=== PATIENT | male | born 1945 | race Caucasian/White ===

== ENCOUNTER → 2017-08-04 10:27 | Outpatient (CLI) | payer MEDICARE, OTHER, SELFPAY ==
--- NOTE | 2017-08-04 | DI.CT.S_ITS ---
PROCEDURE: CT ABDOMEN PELVIS W CON INDICATIONS: Weight Loss TECHNIQUE: After the administration of oral and intravenous contrast, 5 mm thick sections acquired from the diaphragms to the symphysis. 5 mm thick coronal and sagittal reformats were performed. For radiation dose reduction, the following was used: automated exposure control, adjustment of mA and/or kV according to patient size. COMPARISON: [facility], RG, CT KUB, 03/14/2006, 12:24. Merged With [facility], CT, CT ANGIO ABD, 05/09/2015, 10:45. FINDINGS: Image quality: Excellent. ABDOMEN: Lung bases: There is a stable small subpleural 3 mm nodule within the right middle lobe. Mild dependent atelectasis is present bilaterally. Heart size is normal. Solid organs: There are a few scattered small hypodense foci within the liver which are too small to characterize but appears similar to the prior study and likely represent cysts. There is a small cyst also noted within the left hepatic lobe measuring up to 1.2 cm. The gallbladder appears within normal limits without calcified gallstones. Biliary system is non-dilated. Pancreas enhances normally. Spleen is normal in size and enhancement. No adrenal nodules. Kidneys demonstrate no hydronephrosis. There is an exophytic right renal cyst noted. Peritoneum and bowel: Stomach, small bowel, and colon loops are normal in caliber and wall thickness. There is colonic diverticulosis without acute diverticulitis. No free fluid or air. Nodes and vessels: No retroperitoneal or mesenteric adenopathy. There is a saccular aneurysm of the infrarenal abdominal aorta measuring up to 3.9 cm in anteroposterior dimension which is slightly increased from 3.6 cm at a comparable level previously. The hepatic artery arises separately from the aorta and appears patent. The splenic artery also appears patent. The superior mesenteric artery appears patent. The inferior mesenteric artery arises adjacent to the anterior margin of the aortic aneurysm with patent enhancement noted. There is calcification at its origin suggestive of a stenosis which is incompletely evaluated. Miscellaneous: No ventral hernias. PELVIS: Genitourinary: The urinary bladder is partially distended with mild concentric bladder wall thickening and minimal fat stranding. Miscellaneous: No inguinal hernias or adenopathy. There is mild scarring in the right inguinal region. Bones: No suspicious bony lesions. No vertebral body compression fractures. IMPRESSION: 1. Slight interval increase in size of an infrarenal abdominal aortic aneurysm measuring up to 4.0 cm in anteroposterior dimension. 2. 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 There is suggestion of stenosis at its origin. 3. Bladder wall thickening suggestive of a nonspecific cystitis. Recommend correlation with urinalysis. 4. Colonic diverticulosis. Dictated by: Constantin Okeefe M.D. on 08/04/2017 at 16:19 Approved by: Constantin Okeefe M.D. on 08/04/2017 at 16:30
== END ==
PROVIDERS: PCP Family Medicine; Visit Provider Family Medicine
DX: I71.4 Abdominal aortic aneurysm, without rupture (principal); R63.4 Abnormal weight loss; N32.89 Other specified disorders of bladder; K57.90 Diverticulosis of intestine, part unspecified, without perforation or abscess without bleeding
CPT/HCPCS: 74177; Q9967

== ENCOUNTER → 2017-10-29 06:57 | Outpatient (CLI) | payer MEDICARE, OTHER, SELFPAY ==
[2017-10-29 11:11] LABS: Prostate Specific Antigen < 0.064 ng/mL (0.10-4.00)
== END ==
PROVIDERS: PCP Family Medicine; Visit Provider Family Medicine
DX: C61 Malignant neoplasm of prostate (principal)
CPT/HCPCS: 36415; 84153

== ENCOUNTER → 2017-12-09 12:55 | Outpatient (CLI) | payer MEDICARE, OTHER, SELFPAY ==
--- NOTE | 2017-12-09 | DI.RAD.S_ITS ---
PROCEDURE: XR PELVIS 1-2V INDICATIONS: LOW BACK PAIN TECHNIQUE: 1 view(s) of the pelvis acquired. COMPARISON: [facility], CT, CT ABDOMEN PELVIS W CON, 08/04/2017, 11:18. FINDINGS: Bones: No fractures or dislocations. No suspicious bony lesions. Degenerative changes are present within the visualized lower lumbar spine. Mild to moderate bilateral degenerative hip joint space narrowing is present. Soft tissues: Visualized bowel gas pattern is normal. No suspicious soft tissue calcifications. IMPRESSION: Degenerative changes consistent with osteoarthritis within the hip joints bilaterally. Dictated by: Tiffany Alvarez M.D. on 12/09/2017 at 16:47 Approved by: Tiffany Alvarez M.D. on 12/09/2017 at 16:48
--- NOTE | 2017-12-09 | DI.RAD.S_ITS ---
PROCEDURE: XR LUMBAR SPINE 2-3V INDICATIONS: LOW BACK PAIN TECHNIQUE: 3 views of the lumbar spine were acquired. COMPARISON: [facility], , L-SPINE 2-3 VIEWS, 11/26/2014, 8:26. FINDINGS: Bones: 5 [id number] vertebrae are present. There is multilevel trace retrolisthesis. Multilevel small anterior osteophytes are present. The most prominent disc and foraminal narrowing is noted L4-5 and L5-S1 slightly progressive compared to prior exam. No vertebral body compression fractures. No suspicious bony lesions. Soft tissues: Overlying bowel gas pattern is normal. No suspicious soft tissue calcifications. IMPRESSION: Slightly progressive degenerative change most notable at L4-5 and L5-S1. Dictated by: Tiffany Alvarez M.D. on 12/09/2017 at 16:59 Approved by: Tiffany Alvarez M.D. on 12/09/2017 at 17:00
== END ==
PROVIDERS: PCP Family Medicine; Visit Provider Family Medicine
DX: M54.5 Low back pain (principal); M16.0 Bilateral primary osteoarthritis of hip
CPT/HCPCS: 72100; 72170

== ENCOUNTER → 2017-12-15 06:49 | Outpatient (CLI) | payer MEDICARE, OTHER, SELFPAY ==
[2017-12-15 07:58] LABS: Add Manual Diff / Slide Review NO; Basophils Percent Auto 0.8 % (0-2); Eosinophils Percent Auto 4.1 % (2-4); Hematocrit 44.9 % (41-53); Hemoglobin 15.4 g/dL (13.5-17.5); Lymphocytes Percent Auto 29.8 % (25-40); Mean Corpuscular HGB Conc 34.4 % (30-36); Mean Corpuscular Hemoglobin 32.3 PG (26-34); Mean Corpuscular Volume 93.9 fL (80-100); Monocytes Percent Auto 14.4 % (3-14); Neutrophils Absolute Auto 3200 /uL (3000-5900); Neutrophils Percent Auto 50.9 % (50-75); Platelet Count 223 X10^3/uL (150-400); Red Blood Cell Count 4.78 X10^6/uL (4.5-5.9); Red Cell Distribution Width 13.8 % (11.6-14.8); White Blood Cell Count 6.3 X10^3/uL (4.5-11.0)
[2017-12-15 08:18] LABS: Alanine Aminotransferase 34 IU/L (21-72); Albumin 3.9 g/dL (3.5-5.0); Albumin Globulin Ratio 1.6 (1.0-2.8); Alkaline Phosphatase 52 U/L (38-126); Aspartate Aminotransferase 29 IU/L (17-59); BUN Creatinine Ratio 18.2 (6-22); Bilirubin Total 0.5 mg/dL (0.2-1.3); Blood Urea Nitrogen 20 mg/dL (9-20); Calcium 9.3 mg/dL (8.4-10.2); Carbon Dioxide 31 mmol/L (22-32); Chloride 104 mmol/L (98-107); Cholesterol 146 mg/dL (140-199); Estimated Glomerular Filt Rate > 60.0 mL/min (>60); Globulin 2.5 g/dL (1.7-4.1); Glucose 115 mg/dL (80-110); HDL Cholesterol 45 mg/dL (40-60); HEMOLYSIS < 15 (0-50); LDL Cholesterol Calculated 80 mg/dL (<100); Potassium 4.2 mmol/L (3.4-5.1); Sodium 144 mmol/L (137-145); Total Protein 6.4 g/dL (6.3-8.2); Triglycerides 103 mg/dL (35-150)
[2017-12-15 08:19] LABS: C-Reactive Protein Quant < 0.5 mg/dL (<1.0)
[2017-12-15 08:45] LABS: Thyroid Stimulating Hormone 2.07 uIU/mL (0.47-4.68)
[2017-12-15 08:47] LABS: Carcinoembryonic Antigen 0.8 ng/mL (0.1-3.0)
[2017-12-15 09:02] LABS: Erythrocyte Sedimentation Rate 1 MM/HR (0-15)
== END ==
PROVIDERS: PCP Family Medicine; Visit Provider Family Medicine
DX: I10 Essential (primary) hypertension (principal); E78.5 Hyperlipidemia, unspecified; I71.3 Abdominal aortic aneurysm, ruptured; R63.4 Abnormal weight loss
CPT/HCPCS: 36415; 80053; 80061; 82378; 84443; 85025; 85651; 86140

== ENCOUNTER → 2017-12-22 11:08 | Outpatient (CLI) | payer MEDICARE, OTHER, SELFPAY ==
--- NOTE | 2017-12-22 | DI.RAD.S_ITS ---
PROCEDURE: XR CHEST 2V INDICATIONS: CHEST PRESSURE TECHNIQUE: 2 views of the chest were acquired. COMPARISON: [facility], , CHEST 1 VIEW, 12/02/2013, 13:47. FINDINGS: Surgical changes and devices: None. Lungs and pleura: Linear opacities are present in the left base, likely atelectasis. Mediastinum: Mediastinal contours are normal. Heart size is normal. Bones and chest wall: No suspicious bony abnormalities. Soft tissues appear unremarkable. IMPRESSION: Left basilar atelectasis. Dictated by: Tiffany Alvarez M.D. on 12/22/2017 at 12:38 Approved by: Tiffany Alvarez M.D. on 12/22/2017 at 12:39
== END ==
PROVIDERS: PCP Family Medicine; Visit Provider Family Medicine
DX: R07.89 Other chest pain (principal); J98.11 Atelectasis
CPT/HCPCS: 71046

== ENCOUNTER → 2018-01-07 12:24 | Outpatient (CLI) | payer MEDICARE, OTHER, SELFPAY ==
[2018-01-07 13:36] LABS: Blood Urea Nitrogen 17 mg/dL (9-20); Calcium 9.7 mg/dL (8.4-10.2); Carbon Dioxide 29 mmol/L (22-32); Chloride 101 mmol/L (98-107); Estimated Glomerular Filt Rate > 60.0 mL/min (>60); Glucose 110 mg/dL (80-110); HEMOLYSIS < 15 (0-50); Potassium 3.9 mmol/L (3.4-5.1); Sodium 142 mmol/L (137-145)
== END ==
PROVIDERS: PCP Family Medicine; Visit Provider Family Medicine
DX: Z01.812 Encounter for preprocedural laboratory examination (principal)
CPT/HCPCS: 36415; 80048

== ENCOUNTER → 2018-01-08 10:40 | Outpatient (CLI) | payer MEDICARE, OTHER, SELFPAY ==
--- NOTE | 2018-01-08 | DI.CT.S_ITS ---
PROCEDURE: CT CHEST W CON INDICATIONS: SORE THROAT DYSPHAGIA FATIGUE TECHNIQUE: After the administration of intravenous contrast, 5 mm thick sections acquired from the pulmonary apices to the posterior costophrenic angles. 7 mm thick coronal and sagittal MIP reformats were acquired. For radiation dose reduction, the following was used: automated exposure control, adjustment of mA and/or kV according to patient size. COMPARISON: [facility], RG, CT KUB, 03/14/2006, 12:24. [facility], CT, CT ANGIO ABD, 05/09/2015, 10:45. [facility], CT, CT ABDOMEN PELVIS W CON, 08/04/2017, 11:18. FINDINGS: Image quality: Excellent. Lungs and pleura: Atelectasis is noted in the dependent portions of the lung bases. 3 mm subpleural nodule in the lateral segment of the right middle lobe is stable compared to prior CT scan obtained 03/14/2006. No pleural effusions or pneumothorax. Central and peripheral airways are patent and normal in caliber. Mediastinum: Heart size is normal. No pericardial effusion. No mediastinal or hilar adenopathy by size criteria. Thoracic aorta and central pulmonary arteries are normal in size. Scattered atherosclerotic calcifications are noted in the aorta. Esophagus is normal in caliber. No hiatal hernia. Bones and chest wall: No suspicious bony lesions. No vertebral body compression fractures. Spine degenerative disc disease and facet arthropathy. No axillary or supraclavicular adenopathy by size criteria. Thyroid gland is normal. Abdomen: Multiple hypoattenuating lesions identified in the visualized liver are stable in size, contour and number compared to 08/04/2017 and 05/09/2015. Partially visualized exophytic cysts noted in the right kidney. Visualized upper abdominal solid organs otherwise appear normal. Upper abdominal bowel loops are normal in caliber. IMPRESSION: 1. No acute disease process. 2. No lung consolidation 3. No pleural effusions. 4. 3 mm nodule in the right middle lobe stable compared to prior examinations likely represents sequela prior granulomatous disease. 5. Atherosclerosis. Dictated by: Latonia Sharma MD, PhD on 01/08/2018 at 12:35 Approved by: Latonia Sharma MD, PhD on 01/08/2018 at 12:46
--- NOTE | 2018-01-08 | DI.CT.S_ITS ---
PROCEDURE: CT SOFT TISSUE NECK W CON INDICATIONS: SORE THROAT DYSPHAGIA FATIGUE TECHNIQUE: After the administration of intravenous contrast, 3.0 mm axial sections acquired from the sella to the aortic arch. Additional oblique axial 3.0 mm sections acquired through the pharynx. 3 mm thick coronal and sagittal reformats were generated. For radiation dose reduction, the following was used: automated exposure control. COMPARISON: None. FINDINGS: Image quality: Limited by beam hardening artifact related to metallic dental hardware. Lymph nodes: No enlarged lymph nodes seen throughout the neck. Vessels: Visualized vasculature appears patent. Atherosclerotic calcifications noted in the origins of the internal carotid arteries which causes less than 50% stenosis of the vessels. Neck spaces: There is prominence of lingual tonsils at the base of the tongue which could be infectious/inflammatory versus neoplastic. Recommend correlation with direct visualization. The nasopharynx, and pharynx demonstrate no mucosal lesions. The vocal cords, false vocal cords, pyriform sinuses, epiglottis, vallecula, and tongue base all appear normal. Extramucosal spaces appear unremarkable. Glands: The parotid and submandibular glands appear normal. Thyroid gland is normal. Miscellaneous: Visualized brain and orbits appear normal. Lung apices appear clear. Superficial soft tissues appear normal. Bones: No suspicious bony lesions. Spine degenerative disc disease and facet arthropathy. Visualized sinuses and mastoids appear unremarkable. IMPRESSION: 1. Prominence of lingual tonsils at the base of the tongue. Recommend correlation with direct visualization to differentiate inflammatory/infectious etiologies from a neoplastic process. 2. No lymphadenopathy based on size criteria. 3. No abscess. 4. Bilateral internal carotid artery atherosclerosis causes less than 50% stenosis of the origins of the vessels. 5. Severe cervical spine degenerative disc disease and facet arthropathy. Dictated by: Latonia Sharma MD, PhD on 01/08/2018 at 12:27 Approved by: Latonia Sharma MD, PhD on 01/08/2018 at 12:34
== END ==
PROVIDERS: PCP Family Medicine; Visit Provider Family Medicine
DX: J02.9 Acute pharyngitis, unspecified (principal); R13.10 Dysphagia, unspecified; R53.83 Other fatigue; I65.23 Occlusion and stenosis of bilateral carotid arteries; M50.30 Other cervical disc degeneration, unspecified cervical region; M47.812 Spondylosis without myelopathy or radiculopathy, cervical region; I25.10 Atherosclerotic heart disease of native coronary artery without angina pectoris; R91.1 Solitary pulmonary nodule
CPT/HCPCS: 70491; 71260; Q9967

== ENCOUNTER → 2018-04-08 09:19 | Outpatient (CLI) | payer MEDICARE, OTHER, SELFPAY ==
[2018-04-08 10:37] LABS: Add Manual Diff / Slide Review NO; Basophils Percent Auto 0.5 % (0-2); Eosinophils Percent Auto 4.2 % (2-4); Hematocrit 44.8 % (41-53); Hemoglobin 15.1 g/dL (13.5-17.5); Lymphocytes Percent Auto 25.9 % (25-40); Mean Corpuscular HGB Conc 33.6 % (30-36); Mean Corpuscular Hemoglobin 31.9 PG (26-34); Mean Corpuscular Volume 94.7 fL (80-100); Monocytes Percent Auto 13.3 % (3-14); Neutrophils Absolute Auto 4500 /uL (1500-7000); Neutrophils Percent Auto 56.1 % (50-75); Platelet Count 263 X10^3/uL (150-400); Red Blood Cell Count 4.73 X10^6/uL (4.5-5.9); Red Cell Distribution Width 14.4 % (11.6-14.8); White Blood Cell Count 8.1 X10^3/uL (4.5-11.0)
[2018-04-08 10:50] LABS: Alanine Aminotransferase 47 IU/L (21-72); Albumin Globulin Ratio 1.4 (1.0-2.8); Alkaline Phosphatase 62 U/L (38-126); Aspartate Aminotransferase 31 IU/L (17-59); Bilirubin Total 0.6 mg/dL (0.2-1.3); Blood Urea Nitrogen 22 mg/dL (9-20); Calcium 9.2 mg/dL (8.4-10.2); Carbon Dioxide 25 mmol/L (22-32); Chloride 105 mmol/L (98-107); Estimated Glomerular Filt Rate > 60.0 mL/min (>60); Globulin 2.8 g/dL (1.7-4.1); Glucose 89 mg/dL (80-110); HEMOLYSIS < 15 (0-50); Potassium 3.8 mmol/L (3.4-5.1); Sodium 140 mmol/L (137-145); Total Protein 6.8 g/dL (6.3-8.2)
[2018-04-08 10:57] LABS: C-Reactive Protein Quant < 0.5 mg/dL (<1.0)
[2018-04-08 10:59] LABS: Erythrocyte Sedimentation Rate 1 MM/HR (0-15)
[2018-04-08 11:19] LABS: Carcinoembryonic Antigen 0.9 ng/mL (0.1-3.0); Prostate Specific Antigen < 0.064 ng/mL (0.10-4.00)
[2018-04-08 11:37] LABS: Thyroid Stimulating Hormone 1.53 uIU/mL (0.47-4.68)
[2018-04-10 07:54] LABS: Immunoglobulin E 12 kU/L (< 115)
== END ==
PROVIDERS: PCP Family Medicine; Visit Provider Family Medicine
DX: J30.9 Allergic rhinitis, unspecified (principal); D50.9 Iron deficiency anemia, unspecified; Z85.46 Personal history of malignant neoplasm of prostate; R63.4 Abnormal weight loss; I10 Essential (primary) hypertension
CPT/HCPCS: 36415; 80053; 82378; 82728; 82785; 84153; 84443; 85025; 85651; 86140

== ENCOUNTER → 2018-04-27 09:59 | Outpatient (CLI) | payer MEDICARE, OTHER, SELFPAY ==
--- NOTE | 2018-04-27 | DI.RAD.S_ITS ---
PROCEDURE: FL BARIUM SWALLOW W SPEECH INDICATIONS: DYSPHAGIA TECHNIQUE: Examination was conducted in conjunction with speech pathology per standard protocol. In the lateral projection, filming was performed of the patient swallowing. AP projection filming may also be performed with patient swallowing. COMPARISON: None. FINDINGS: Function: The oral preparatory phase appears normal, with proper containment. The subsequent oral propulsive phase, pharyngeal phase, and esophageal phase of swallowing also appear normal with all proffered substances. No laryngotracheal penetration or aspiration. No pathologic vallecular pooling. Morphology: No cricopharyngeal bar is identified. No cervical esophageal webs. No Zenker's diverticulum. No strictures. IMPRESSION: Normal examination. Please also refer to the dedicated speech therapy swallowing evaluation report that will be independently generated. Dictated by: Italo Hernandez M.D. on 04/27/2018 at 12:08 Approved by: Italo Hernandez M.D. on 04/27/2018 at 12:09
== END ==
PROVIDERS: PCP Family Medicine; Visit Provider Otolaryngology Facial Plastic Surgery
DX: R13.10 Dysphagia, unspecified (principal)
CPT/HCPCS: 74230; 92611

== ENCOUNTER → 2018-12-15 13:07 | Outpatient (CLI) | payer MEDICARE, OTHER, SELFPAY ==
--- NOTE | 2018-12-15 | DI.US.S_ITS ---
PROCEDURE: US RETRO PERITONEAL LIMITED INDICATIONS: Abdominal aortic aneurysm, without rupture TECHNIQUE: Real time scanning was performed of the aorta and iliac arteries, with image documentation. COMPARISON: [facility], , ABD AORTA ANEURYSM SCREENING, 10/30/2016, 9:52. [facility], [place], ABDOMEN COMPLETE, 08/04/2013, 9:07. [facility], [place], NM PET CT FUSION SKULL 2 THIGH, 04/29/2018, 17:01. [facility], CT, CT CHEST W CON, 01/08/2018, 10:47. [facility], CT, CT ABDOMEN PELVIS W CON, 08/04/2017, 11:18. FINDINGS: Aorta: Proximal aortic diameter measures 3.2 cm. Mid-aorta measures 2.8 cm. Distal aortic diameter is 5.8 cm craniocaudad, and 4.5 cm AP and transverse. This represents only a small degree of interval enlargement from the prior study performed by ultrasound 10/30/16. When at that time the maximal axial dimension AP and transverse was 3.5 x 3.9 cm. Iliac arteries: Right common iliac artery measures 1.6 cm. Left common iliac artery measures 1.8 cm. IMPRESSION: Mild interval increase in the aortic aneurysm involving the distal abdominal aorta, a best represented by the change in the axial dimension from 3.5 x 3.9 cm previously to 4.5 x 4.5 cm currently. Dictated by: Italo Hernandez M.D. on 12/15/2018 at 16:32 Approved by: Italo Hernandez M.D. on 12/15/2018 at 16:36
== END ==
PROVIDERS: PCP Family Medicine; Visit Provider Hospitalist
DX: I71.4 Abdominal aortic aneurysm, without rupture (principal)
CPT/HCPCS: 76775

== ENCOUNTER → 2019-01-20 12:27 | Outpatient (CLI) | payer MEDICARE, OTHER, SELFPAY ==
--- NOTE | 2019-01-20 | DI.CT.S_ITS ---
PROCEDURE: CT ANGIO ABDOMEN PELVIS INDICATIONS: AAA TECHNIQUE: After the administration of intravenous contrast, 2.5 mm thick sections acquired from the diaphragm to the symphysis. 10 mm maximum-intensity projection (MIP) reformats were then acquired. For radiation dose reduction, the following was used: automated exposure control. COMPARISON: [facility], CT, CT ABDOMEN PELVIS W CON, 08/04/2017, 11:18. FINDINGS: Image quality: Excellent. Aorta: Significant interval growth of an infrarenal abdominal aortic aneurysm, which previously measured 4.4 x 4.3 cm and currently measures 4.7 x 4.8 cm. It now has moderate thrombus. There is a suitable neck between the lowest renal artery and the aneurysm. The aneurysm ends before the common iliac arteries. There are 2 left renal arteries and a single right renal artery. The main renal arteries are widely patent. Mesenteric arteries: Celiac trunk and SMA are patent. The SIMÓN is thrombosed at its origin.. There is variant anatomy in which the common hepatic artery arises independently from the celiac artery off of the aorta at the same level. Right pelvic arteries: Common iliac and external iliac are widely patent. There are tortuous. There is no aneurysm. Left pelvic arteries: Common iliac and external iliac arteries are widely patent. There are tortuous. There are not aneurysmal. There is a high left iliac bifurcation. Extravascular soft tissues: Lung bases are clear. Heart size is normal. Liver is normal in size and enhancement. Gallbladder is unremarkable. Biliary system is non dilated. Pancreas enhances normally. Spleen is normal in size and enhancement. No adrenal nodules. Kidneys are normal in size and enhancement, without hydronephrosis. Non opacified bowel loops are normal in wall thickness and caliber. No free fluid or air. Mild colonic diverticulosis. No retroperitoneal or mesenteric adenopathy. No ventral hernias. No suspicious bony lesions. No vertebral body compression fractures. IMPRESSION: 1. Significant interval growth of infrarenal abdominal aortic aneurysm over a relatively short period of time. Based on significant interval growth, surgical therapy is suggested. The aneurysm has a suitable anatomy for endovascular treatment. Current measurements are 4.7 x 4.8 cm. 2. SIMÓN origin is occluded. Recommend vascular surgical consultation if this has not already occurred. Dictated by: Lev Rai M.D. on 01/20/2019 at 17:32 Approved by: Lev Rai M.D. on 01/20/2019 at 17:43
[2019-01-20 13:15] LABS: Add Manual Diff / Slide Review NO; Basophils Absolute Auto 100 /uL (0-100); Basophils Percent Auto 0.6 % (0-2); Eosinophils Absolute Auto 200 /uL (0-450); Eosinophils Percent Auto 1.9 % (2-4); Hematocrit 53.1 % (41-53); Hemoglobin 17.6 g/dL (13.5-17.5); Lymphocytes Absolute Auto 1900 /uL (1100-4500); Lymphocytes Percent Auto 20.8 % (25-40); Mean Corpuscular HGB Conc 33.2 % (30-36); Mean Corpuscular Hemoglobin 32.3 PG (26-34); Mean Corpuscular Volume 97.1 fL (80-100); Monocytes Absolute Auto 1100 /uL (0-900); Monocytes Percent Auto 11.3 % (3-14); Neutrophils Absolute Auto 6100 /uL (1500-7000); Neutrophils Percent Auto 65.4 % (50-75); Platelet Count 240 X10^3/uL (150-400); Red Blood Cell Count 5.47 X10^6/uL (4.5-5.9); Red Cell Distribution Width 13.8 % (11.6-14.8); White Blood Cell Count 9.3 X10^3/uL (4.5-11.0)
[2019-01-20 13:37] LABS: Erythrocyte Sedimentation Rate 1 MM/HR (0-15)
[2019-01-20 13:41] LABS: Alanine Aminotransferase 20 IU/L (21-72); Albumin 4.5 g/dL (3.5-5.0); Albumin Globulin Ratio 1.5 (1.0-2.8); Alkaline Phosphatase 65 U/L (38-126); Aspartate Aminotransferase 30 IU/L (17-59); BUN Creatinine Ratio 17.5 (6-22); Bilirubin Total 0.9 mg/dL (0.2-1.3); Blood Urea Nitrogen 21 mg/dL (9-20); C-Reactive Protein Quant < 0.5 mg/dL (<1.0); Calcium 9.6 mg/dL (8.4-10.2); Carbon Dioxide 26 mmol/L (22-32); Chloride 102 mmol/L (98-107); Estimated Glomerular Filt Rate 59.2 mL/min (>60); Glucose 102 mg/dL (80-110); HEMOLYSIS 18 (0-50); Potassium 3.9 mmol/L (3.4-5.1); Sodium 138 mmol/L (137-145); Total Protein 7.5 g/dL (6.3-8.2)
[2019-01-20 14:09] LABS: Thyroid Stimulating Hormone 1.03 uIU/mL (0.47-4.68)
[2019-01-20 14:10] LABS: Carcinoembryonic Antigen 1.2 ng/mL (0.1-3.0)
[2019-01-20 14:11] LABS: Prostate Specific Antigen < 0.064 ng/mL (0.10-4.00)
[2019-01-20 14:14] LABS: Ferritin 83.8 ng/mL (17.9-464)
[2019-01-23 09:38] LABS: Immunoglobulin E 15 kU/L (< 115)
== END ==
PROVIDERS: PCP Family Medicine; Visit Provider Physician Assistant
DX: I71.4 Abdominal aortic aneurysm, without rupture (principal); J30.9 Allergic rhinitis, unspecified; D50.9 Iron deficiency anemia, unspecified; K57.90 Diverticulosis of intestine, part unspecified, without perforation or abscess without bleeding; K55.069 Acute infarction of intestine, part and extent unspecified; I10 Essential (primary) hypertension; Z85.46 Personal history of malignant neoplasm of prostate
CPT/HCPCS: 36415; 74174; 80053; 82378; 82728; 82785; 84153; 84443; 85025; 85651; 86140; Q9967

== ENCOUNTER → 2019-04-29 09:58 | Outpatient (CLI) | payer MEDICARE, OTHER, SELFPAY ==
--- NOTE | 2019-04-29 | DI.RAD.S_ITS ---
PROCEDURE: XR KNEE LT 3V INDICATIONS: L KNEE DISCOMFORT AND BUCKLING TECHNIQUE: 3 views of the knee were acquired. COMPARISON: None. FINDINGS: Bones: Tricompartmental degenerative changes. Marginal osteophyte formation. No fractures or dislocations. No suspicious bony lesions. Soft tissues: No joint effusion. No suspicious soft tissue calcifications. IMPRESSION: Tricompartmental degenerative changes of the left knee. No acute osseous abnormalities. Dictated by: Garrett Coker M.D. on 04/29/2019 at 18:39 Approved by: Garrett Coker M.D. on 04/29/2019 at 18:41
== END ==
PROVIDERS: PCP Family Medicine; Visit Provider Family Medicine
DX: M25.562 Pain in left knee (principal)
CPT/HCPCS: 73562

== ENCOUNTER → 2019-11-02 15:08 | Outpatient (CLI) | payer MEDICARE, OTHER, SELFPAY ==
[2019-11-02 16:44] LABS: BUN Creatinine Ratio 16.8 (6-22); Blood Urea Nitrogen 18 mg/dL (9-20); Calcium 9.5 mg/dL (8.4-10.2); Carbon Dioxide 29 mmol/L (22-32); Chloride 99 mmol/L (98-107); Estimated Glomerular Filt Rate > 60.0 mL/min (>60); Glucose 92 mg/dL (80-110); HEMOLYSIS < 15 (0-50); Potassium 3.9 mmol/L (3.4-5.1); Sodium 136 mmol/L (137-145)
== END ==
PROVIDERS: PCP Family Medicine; Referring Provider Nurse Practitioner; Visit Provider Nurse Practitioner
DX: I10 Essential (primary) hypertension (principal)
CPT/HCPCS: 36415; 80048

== ENCOUNTER → 2020-02-22 09:18 | Outpatient (CLI) | payer MEDICARE, OTHER, SELFPAY ==
[2020-03-03 09:20] LABS: COVID19 -Nasal RAPID POSITIVE (Negative)
== END ==
PROVIDERS: PCP Family Medicine; Referring Provider Family Medicine; Visit Provider Family Medicine
DX: U07.1 COVID-19 (principal)
CPT/HCPCS: 87635

== ENCOUNTER → 2020-04-07 14:08 | Outpatient (CLI) | payer MEDICARE, OTHER, SELFPAY ==
[2020-04-13 13:16] LABS: SARS CoV19 IgG Positive
== END ==
PROVIDERS: PCP Family Medicine; Referring Provider Family Medicine; Visit Provider Family Medicine
DX: Z01.84 Encounter for antibody response examination (principal); Z86.16 Personal history of COVID-19
CPT/HCPCS: 36415; 86769

== ENCOUNTER → 2020-06-29 10:44 | Outpatient (CLI) | payer MEDICARE, OTHER, SELFPAY ==
[2020-06-30 12:14] LABS: SARS CoV19 IgG Negative (Negative)
== END ==
PROVIDERS: PCP Family Medicine; Referring Provider Family Medicine; Visit Provider Family Medicine
DX: Z20.822 Contact with and (suspected) exposure to COVID-19 (principal); Z86.16 Personal history of COVID-19
CPT/HCPCS: 36415; 86769

== ENCOUNTER → 2020-09-04 14:21 | Outpatient (ROUT) | payer MEDICARE, OTHER, SELFPAY ==
[2020-09-04 14:42] LABS: COVID19 -Nasal RAPID Negative (Negative)
== END ==
PROVIDERS: PCP Family Medicine; Visit Provider Family Medicine
DX: Z20.822 Contact with and (suspected) exposure to COVID-19 (principal)
CPT/HCPCS: 87635

== ENCOUNTER → 2020-09-12 08:56 | Outpatient (CLI) | payer MEDICARE, OTHER, SELFPAY ==
--- NOTE | 2020-09-12 | DI.US.S_ITS ---
PROCEDURE: US ABDOMEN LIMITED INDICATIONS: LIVER CYSTS ON MRI TECHNIQUE: Real-time focused scanning was performed of the abdomen, with image documentation. COMPARISON: [facility], CT, CT ANGIO ABDOMEN PELVIS, 01/20/2019, 13:40. Prior cardiac MRI 08/18/19 which identified what was felt to be several hepatic cysts, scattered.. FINDINGS: There are several small echogenic foci, with also internal low attenuation within the right and left hepatic lobes, measuring 4 x 4 x 5 mm, 5 x 5 x 5 mm, 4 x 4 x 7 mm within the liver parenchyma. These are most likely a small hemangiomas. No solid mass lesion is found that would indicate likelihood underlying malignancy. No intrahepatic biliary distention is seen. Note is made of an exophytic 5 cm cyst projecting from the right kidney cortex, simple in appearance. IMPRESSION: Several scattered subcentimeter hepatic hemangiomas are present, 3 total, and no solid mass lesion is found. These are presumed hemangiomas by appearance. Focal small hypodensities are seen on CT scanning 02/20/19 the corresponding in general to the findings identified sonographically and these have not changed in position or size when differences in technique are taken into account. Dictated by: Italo Hernandez M.D. on 09/13/2020 at 13:30 Approved by: Italo Hernandez M.D. on 09/13/2020 at 13:34
== END ==
PROVIDERS: PCP Family Medicine; Referring Provider Internal Medicine; Visit Provider Internal Medicine
DX: K76.89 Other specified diseases of liver (principal); D18.09 Hemangioma of other sites
CPT/HCPCS: 76705

== ENCOUNTER → 2020-09-21 09:57 | Outpatient (CLI) | payer MEDICARE, OTHER, SELFPAY ==
--- NOTE | 2020-09-21 | DI.CT.S_ITS ---
PROCEDURE: CT ABDOMEN PELVIS WO CON INDICATIONS: Lower abdominal pain, unspecified TECHNIQUE: After the administration of oral contrast, 5 mm thick sections acquired from the diaphragms to the symphysis. 5 mm coronal and sagittal reformats were performed. For radiation dose reduction, the following was used: automated exposure control, adjustment of mA and/or kV according to patient size. COMPARISON: [facility], CT, CT ANGIO ABDOMEN PELVIS, 01/20/2019, 13:40. FINDINGS: Image quality: Excellent. ABDOMEN: Lung bases: Lung bases are clear. Heart size is normal. Solid organs: Liver is normal in size. Gallbladder is within normal limits. Pancreas is normal in size. Spleen is normal in size. No adrenal nodules. Both kidneys are normal in size, without hydronephrosis or nephrolithiasis. Nonspecific mild bilateral perinephric fat stranding is seen. Well-circumscribed and exophytic hypodense structure in upper to midpole of right kidney is seen measures 4.9 x 5.3 cm in size unchanged from 2019 study and is consistent with a renal cyst. Peritoneum and bowel: Bowel loops demonstrate normal wall thickness and caliber. No free fluid or air. Colonic diverticulosis is seen, no CT evidence of acute diverticulitis. Nodes and vessels: No retroperitoneal or mesenteric adenopathy by size criteria. There is fusiform infrarenal abdominal aortic aneurysm currently measures up to 4.9 x 5 cm in largest AP and transverse diameter compared to 4.7 x 4.8 cm in size on previous study series 2, image 37. Moderate atherosclerotic disease is seen. No periaortic fluid collection is noted. Miscellaneous: No ventral hernias. PELVIS: Genitourinary: Bladder wall thickness is normal. Miscellaneous: No inguinal hernias or adenopathy. Bones: No suspicious bony lesions. No vertebral body compression fractures. Degenerative disc disease in lower lumbar spine is again seen more prominent at L4-5 and L5-S1 levels. IMPRESSION: 1. Fusiform infrarenal abdominal aortic aneurysm now measures 4.9 x 5 cm in size compared to 4.7 x 4.8 cm in size in 2019. No evidence of rupture. Atherosclerotic calcifications throughout abdominal aorta. 2. No acute inflammatory process within abdomen or pelvis. No bowel obstruction. Colonic diverticulosis without evidence of acute diverticulitis. No free fluid or free air. 3. Degenerative disc disease in lumbar spine as above. No acute compression fracture or spondylolisthesis. Dictated by: Som Locke M.D. on 09/21/2020 at 12:37 Approved by: Som Locke M.D. on 09/21/2020 at 12:41
== END ==
PROVIDERS: PCP Family Medicine; Referring Provider Family Medicine; Visit Provider Family Medicine
DX: R10.30 Lower abdominal pain, unspecified (principal); I71.4 Abdominal aortic aneurysm, without rupture; I70.0 Atherosclerosis of aorta; K57.90 Diverticulosis of intestine, part unspecified, without perforation or abscess without bleeding; M51.36 Other intervertebral disc degeneration, lumbar region
CPT/HCPCS: 74176

== ENCOUNTER → 2020-09-22 06:46 | Outpatient (CLI) | payer MEDICARE, OTHER, SELFPAY ==
[2020-09-22 07:34] LABS: Add Manual Diff / Slide Review NO; Basophils Absolute Auto 0 /uL (0-100); Basophils Percent Auto 0.7 % (0-2); Eosinophils Absolute Auto 300 /uL (0-450); Eosinophils Percent Auto 3.8 % (2-4); Hematocrit 45.7 % (41-53); Hemoglobin 15.4 g/dL (13.5-17.5); Lymphocytes Absolute Auto 2200 /uL (1100-4500); Lymphocytes Percent Auto 31.2 % (25-40); Mean Corpuscular HGB Conc 33.6 % (30-36); Mean Corpuscular Hemoglobin 32.9 PG (26-34); Mean Corpuscular Volume 97.6 fL (80-100); Monocytes Absolute Auto 1000 /uL (0-900); Monocytes Percent Auto 13.8 % (3-14); Neutrophils Absolute Auto 3600 /uL (1500-7000); Neutrophils Percent Auto 50.5 % (50-75); Platelet Count 248 X10^3/uL (150-400); Red Blood Cell Count 4.68 X10^6/uL (4.5-5.9); Red Cell Distribution Width 13.8 % (11.6-14.8); White Blood Cell Count 7.1 X10^3/uL (4.5-11.0)
[2020-09-22 08:33] LABS: Alanine Aminotransferase 18 IU/L (<50); Albumin 4.1 g/dL (3.5-5.0); Albumin Globulin Ratio 1.6 (1.0-2.8); Alkaline Phosphatase 47 U/L (38-126); Aspartate Aminotransferase 30 IU/L (17-59); Bilirubin Total 0.7 mg/dL (0.2-1.3); Blood Urea Nitrogen 22 mg/dL (9-20); Calcium 9.6 mg/dL (8.4-10.2); Carbon Dioxide 26 mmol/L (22-32); Chloride 99 mmol/L (98-107); Cholesterol 173 mg/dL (140-199); Estimated Glomerular Filt Rate > 60.0 mL/min (>60); Globulin 2.6 g/dL (1.7-4.1); Glucose 101 mg/dL (80-110); HDL Cholesterol 61 mg/dL (40-60); HEMOLYSIS < 15 (0-50); LDL Cholesterol Calculated 88 mg/dL (<100); Magnesium 1.7 mg/dL (1.6-2.3); Potassium 4.3 mmol/L (3.4-5.1); Sodium 134 mmol/L (137-145); Total Protein 6.7 g/dL (6.3-8.2); Triglycerides 122 mg/dL (35-150)
[2020-09-22 09:03] LABS: Prostate Specific Antigen < 0.064 ng/mL (0.10-4.00); Thyroid Stimulating Hormone 1.77 uIU/mL (0.47-4.68)
== END ==
PROVIDERS: PCP Family Medicine; Referring Provider Family Medicine; Visit Provider Family Medicine
DX: E78.5 Hyperlipidemia, unspecified (principal); I10 Essential (primary) hypertension; Z85.46 Personal history of malignant neoplasm of prostate; I71.4 Abdominal aortic aneurysm, without rupture; R10.30 Lower abdominal pain, unspecified; R14.0 Abdominal distension (gaseous)
CPT/HCPCS: 36415; 80053; 80061; 83735; 84153; 84443; 85025

== ENCOUNTER → 2021-02-12 10:41 | Outpatient (ROUT) | payer MEDICARE, OTHER, SELFPAY ==
[2021-02-12 15:25] LABS: COVID19 -Nasal RAPID Negative (Negative)
== END ==
PROVIDERS: PCP Family Medicine; Visit Provider Family Medicine
DX: Z20.822 Contact with and (suspected) exposure to COVID-19 (principal)
CPT/HCPCS: 87635

== ENCOUNTER → 2021-08-22 14:50 | Outpatient (CLI) | payer MEDICARE, OTHER, SELFPAY ==
--- NOTE | 2021-08-22 | DI.RAD.S_ITS ---
PROCEDURE: XR KNEE LT 3V INDICATIONS: LEFT KNEE PAIN TECHNIQUE: Three views of the left knee and one view of the right knee. COMPARISON: [facility], CR, XR KNEE LT 3V, 04/29/2019, 10:06. FINDINGS: Bones: No fractures or dislocations. No suspicious bony lesions. Mild tricompartmental periarticular osteophyte formation bilaterally. Soft tissues: No joint effusion. No suspicious soft tissue calcifications. IMPRESSION: Osteoarthritis. No acute fracture. No osseous lesion. If symptoms and/or clinical suspicion for pathology persist, further assessment with repeat, or advanced imaging (e.g., CT, MRI, or bone scan) may be helpful for further assessment. Dictated by: Cliff Max M.D. on 08/22/2021 at 16:19 Approved by: Cliff Max M.D. on 08/22/2021 at 16:21
== END ==
PROVIDERS: PCP Family Medicine; Referring Provider Family Medicine; Visit Provider Family Medicine
DX: M25.562 Pain in left knee (principal); M17.12 Unilateral primary osteoarthritis, left knee
CPT/HCPCS: 73562

== ENCOUNTER → 2021-08-31 12:54 | Outpatient (CLI) | payer MEDICARE, OTHER, SELFPAY ==
--- NOTE | 2021-08-31 | DI.MRI.S_ITS ---
PROCEDURE: MR LUMBAR SPINE WO CON INDICATIONS: LOWER BACK PAIN TECHNIQUE: Noncontrast sagittal T1 spin echo and T2 fast echo, sagittal STIR, axial T1 and T2 fast spin echo through the lumbar spine. Axial and oblique coronal T1 spin echo and STIR through the sacrum. In cases with scoliosis, additional coronal T2 fast spin echo may be performed. COMPARISON: None. FINDINGS: Image quality: Excellent. Alignment and Curvature: There is normal bony alignment. Bone Marrow: Modic type 1 degenerative endplate changes noted at L3-4. Chronic degenerative endplate changes noted L4-5 min. No evidence of compression fracture. Spinal Cord: Conus medullaris terminates at the L1 level. Visualized cord demonstrates normal signal and size. Paraspinous Soft Tissues: No paravertebral masses. Right renal cortical cyst, partially imaged T12-L1: Normal appearance. L1-L2: Disc height is maintained. Circumferential disc bulge and hypertrophic facet joints results in mild central stenosis. No foraminal stenosis L2-L3: Disc height is maintained. Circumferential disc bulge and hypertrophic facet joints results in moderate central stenosis. Moderate bilateral foraminal stenosis L3-L4: Disc height is maintained. Circumferential disc bulge and hypertrophic facet joints combines with 7 mm right synovial cyst results in severe central stenosis. Severe right and moderate left foraminal stenosis. L4-L5: Disc space narrowing with circumferential disc bulge and hypertrophic facet joints results in mild central stenosis. Severe bilateral foraminal stenosis present. L5-S1: Disc space narrowing and circumferential disc bulge present. Mild central stenosis noted. Hypertrophic facet joints result in severe bilateral foraminal stenosis. IMPRESSION: 1. Degenerative disc disease and arthropathy results in varying degrees of central and foraminal stenosis including severe central stenosis at L3-4 and severe bilateral foraminal stenosis at L4-5 and L5-S1. Approved by: Ez Merchant M.D. on 08/31/2021 at 16:30
== END ==
PROVIDERS: PCP Family Medicine; Referring Provider Family Medicine; Visit Provider Family Medicine
DX: M47.26 Other spondylosis with radiculopathy, lumbar region (principal); M47.27 Other spondylosis with radiculopathy, lumbosacral region; M51.16 Intervertebral disc disorders with radiculopathy, lumbar region; M51.17 Intervertebral disc disorders with radiculopathy, lumbosacral region; M48.061 Spinal stenosis, lumbar region without neurogenic claudication; M48.07 Spinal stenosis, lumbosacral region
CPT/HCPCS: 72148

== ENCOUNTER 2021-10-01 06:45 | Emergency (ER) | payer MEDICARE, OTHER, SELFPAY ==
[2021-10-01] VITALS (38 sets, daily range): BP systolic 120–179; BP diastolic 67–127; PULSE 75–106; RESP 17–33; TEMP 36.4; O2SAT 95–98; BMI 33.1
--- NOTE | 2021-10-01 07:10 | DI.RAD.S_ITS ---
PROCEDURE: XR CHEST 1V INDICATIONS: chest pain TECHNIQUE: One view of the chest was acquired. COMPARISON: [facility], CR, XR CHEST 2V, 12/22/2017, 10:56. FINDINGS: Surgical changes and devices: None. Lungs and pleura: Lungs are clear. No pleural effusions or pneumothorax. Mediastinum: Mildly tortuous thoracic aorta is seen. Heart size is normal. Bones and chest wall: No suspicious bony lesions. Overlying soft tissues appear unremarkable. IMPRESSION: No acute cardiopulmonary pathology. Dictated by: Som Locke M.D. on 10/01/2021 at 7:53 Approved by: Som Locke M.D. on 10/01/2021 at 7:54
--- NOTE | 2021-10-01 07:12 | ED.ARRPALP ---
HPI - Arrhythmia/Palpitations General Chief Complaint: Arrhythmia/Palpitations Stated Complaint: High BP, AFIB warning from watch Time Seen by Provider: 10/01/21 06:49 Source: patient Mode of arrival: Ambulatory History of Present Illness HPI narrative: Patient is a 76-year-old male history of hypertension, hyperlipidemia, anxiety presenting today with elevated blood pressure. He said he takes blood pressure every morning recorded this morning he took it and noted that his diastolic was 110. He then realized that his watch told him he was in atrial fibrillation. He denies any chest pain or palpitations. He had no shortness of breath no headache. He states he does not have a history AFib. He is more concerned about blood pressure. If his blood pressure was not elevated he was going to go exercise. He states that he does see a striper spray gun Dr. Colin Parra in regards to PVCs. Related Data Previous Rx's Medication Instructions Recorded alprazolam 0.5 mg tablet (Xanax) 0.5 mg PO TIDP ##30 09/25/16 omeprazole 20 mg capsule,delayed 20 mg PO BID #180 caps 04/23/17 release Allergies Allergy/AdvReac Type Severity Reaction Status Date / Time No Known Allergies Allergy Uncoded 07/09/17 13:05 Review of Systems Review of Systems Narrative: GENERAL: Denies chills, fatigue, malaise, fever, sweats, travel HEENT: Denies sinus pain, ear pain, sore throat, difficulty swallowing, neck pain RESPIRATORY: Denies dyspnea, cough, wheezing, hemoptysis, sputum. CARDIOVASCULAR: Denies chest pain, palpitations, orthopnea, edema GASTROINTESTINAL: Denies nausea, vomiting, abdominal pain, diarrhea, constipation, melena. : Denies dysuria, frequency, incontinence, hematuria, urinary retention, flank pain. MUSCULOSKELETAL: Denies weakness, joint pain, or bony pain SKIN: No rash, no erythema, no pruritus NEUROLOGIC: Denies weakness, dizziness, headache, numbness, change in speech, confusion PSYCHIATRIC: No concerning psychosocial issues. 12 point review of systems is negative except for those stated above and HPI Patient History Surgical History Status post endoscopy Exam Initial Vital Signs Initial Vital Signs: Vital Signs Pulse Rate 80 10/01/21 06:55 Respiratory Rate 18 10/01/21 06:55 Blood Pressure 142/90 H 10/01/21 06:55 Pulse Oximetry 97 10/01/21 06:55 Oxygen Delivery Method 10/01/21 06:55 GENERAL: Alert very well-appearing 76-year-old male no acute distress HEENT: Head atraumatic,EOMI, pupils reactive, face symmetric, [moist] mucous membranes CARDIOVASCULAR: Irregularly irregular RESPIRATORY: Breath sounds equal bilaterally, no wheezes rales or rhonchi. ABDOMEN: Soft, nontender. Normoactive bowel sounds all 4 quadrants. No guarding or rebound. EXTREMITIES: Normal range of motion, no clubbing or edema. Neurovascularly intact NEUROLOGICAL: Alert and oriented x4.Normal gait and speech. SKIN: Warm, dry, no laceration, no petechiae, no rashes or lesions. Course Orders Ordered: Discontinued Medications Metoprolol Tartrate (Metoprolol Tartrate 5 Mg/5 Ml Inj) 5 mg IV NOW ONE Stop: 10/01/21 07:10 Last Admin: 10/01/21 07:26 Dose: 5 mg Documented By: NEY Propofol (Propofol 200 Mg/20 Ml Vial) 100 mg 1 mg/kg (100 mg) IV NOW ONE Stop: 10/01/21 07:10 Last Admin: 10/01/21 09:50 Dose: Not Given Documented By: NEY Vital Signs Vital signs: Vital Signs - 8 hr 10/01/21 06:55 10/01/21 07:15 10/01/21 07:20 Pulse Rate 80 106 H Respiratory Rate 18 20 Blood Pressure 142/90 H 120/87 Pulse Oximetry 97 97 Oxygen Delivery Method Room Air 10/01/21 07:20 10/01/21 07:25 10/01/21 07:25 Pulse Rate 82 87 Respiratory Rate 20 20 Blood Pressure 162/95 H Pulse Oximetry 98 97 Oxygen Delivery Method 10/01/21 07:30 10/01/21 07:30 10/01/21 07:35 Pulse Rate 83 84 Respiratory Rate 20 Blood Pressure 165/121 H Pulse Oximetry 96 97 Oxygen Delivery Method 10/01/21 07:35 10/01/21 07:40 10/01/21 07:40 Pulse Rate 91 H Respiratory Rate 20 Blood Pressure 165/127 H 159/110 H Pulse Oximetry 97 Oxygen Delivery Method 10/01/21 07:45 10/01/21 07:45 10/01/21 07:50 Pulse Rate 90 Respiratory Rate 20 Blood Pressure 165/91 H 163/97 H Pulse Oximetry 97 Oxygen Delivery Method 10/01/21 07:50 10/01/21 07:55 10/01/21 07:55 Pulse Rate 83 80 Respiratory Rate 20 17 Blood Pressure 152/100 H Pulse Oximetry 97 96 Oxygen Delivery Method 10/01/21 08:00 10/01/21 08:03 10/01/21 08:03 Pulse Rate 83 Respiratory Rate 17 Blood Pressure 135/89 Pulse Oximetry 95 96 Oxygen Delivery Method 10/01/21 08:05 10/01/21 08:09 10/01/21 08:09 Pulse Rate 84 Respiratory Rate 17 17 Blood Pressure 157/96 H Pulse Oximetry 96 Oxygen Delivery Method 10/01/21 08:10 10/01/21 08:11 10/01/21 08:11 Pulse Rate 76 76 Respiratory Rate 17 Blood Pressure 153/78 H Pulse Oximetry 96 96 Oxygen Delivery Method 10/01/21 08:15 10/01/21 08:15 10/01/21 08:20 Pulse Rate 75 Respiratory Rate 17 Blood Pressure 162/82 H 147/75 H Pulse Oximetry 96 Oxygen Delivery Method 10/01/21 08:20 10/01/21 08:25 10/01/21 08:25 Pulse Rate 79 80 Respiratory Rate 17 Blood Pressure 150/91 H Pulse Oximetry 95 96 Oxygen Delivery Method 10/01/21 08:30 10/01/21 08:31 10/01/21 08:31 Pulse Rate 78 83 Respiratory Rate 17 Blood Pressure 134/98 H Pulse Oximetry 96 97 Oxygen Delivery Method 10/01/21 08:35 10/01/21 08:35 10/01/21 08:40 Pulse Rate 78 Respiratory Rate 17 17 Blood Pressure 135/97 H 142/91 H Pulse Oximetry 96 Oxygen Delivery Method 10/01/21 08:40 10/01/21 08:45 10/01/21 08:45 Pulse Rate 97 H 85 Respiratory Rate 17 Blood Pressure 179/96 H Pulse Oximetry 96 96 Oxygen Delivery Method 10/01/21 08:50 10/01/21 08:50 10/01/21 08:55 Pulse Rate 75 Respiratory Rate 18 Blood Pressure 172/87 H 161/71 H Pulse Oximetry 96 Oxygen Delivery Method 10/01/21 08:55 10/01/21 09:00 10/01/21 09:05 Pulse Rate 85 83 84 Respiratory Rate 18 18 Blood Pressure 145/85 H Pulse Oximetry 97 95 97 Oxygen Delivery Method MDM - Arrhythmia/Palpitations Lab Data Result diagrams: 10/01/21 07:23 10/01/21 07:23 Labs: Lab Results 10/01/21 10/01/21 10/01/21 Range/Units 07:23 07:23 07:23 WBC 7.5 (4.5-11.0) X10^3/uL RBC 5.03 (4.5-5.9) X10^6/uL Hgb 16.4 (13.5-17.5) g/dL Hct 48.6 (41-53) % MCV 96.6 (80-100) fL MCH 32.5 (26-34) PG MCHC 33.7 (30-36) % RDW 14.4 (11.6-14.8) % Plt Count 227 (150-400) X10^3/uL Neut % (Auto) 57.8 (50-75) % Lymph % (Auto) 24.9 L (25-40) % [place] % (Auto) 13.0 (3-14) % Eos % (Auto) 3.7 (2-4) % Baso % (Auto) 0.6 (0-2) % Neut # (Auto) 4400 (8776-2056) /uL Lymph # (Auto) 1900 (2901-1419) /uL [place] # (Auto) 1000 H (0-900) /uL Eos # (Auto) 300 (0-450) /uL Baso # (Auto) 0 (0-100) /uL PT 11.8 (10.1-12.7) SECONDS INR 1.1 (0.9-1.3) APTT 39 H (26.4-36.2) SECONDS D-Dimer (<230) ng/mL Sodium 139 (137-145) mmol/L Potassium 3.9 (3.4-5.1) mmol/L Chloride 106 (98-107) mmol/L Carbon Dioxide 26 (22-32) mmol/L BUN 17 (9-20) mg/dL Creatinine 1.11 (0.66-1.25) mg/dL Estimated GFR > 60 (>60) mL/min BUN/Creatinine Ratio 15.3 (6-22) Glucose 120 H (80-110) mg/dL Calcium 8.7 (8.4-10.2) mg/dL Total Bilirubin 0.9 (0.2-1.3) mg/dL AST 27 (17-59) IU/L ALT 19 (<50) IU/L Alkaline Phosphatase 51 (38-126) U/L Total Creatine Kinase 95 (55-170) U/L CK-MB (CK-2) TNP CK-MB (CK-2) Rel Index TNP Troponin I 0.012 (0.01-0.034) ng/mL NT-Pro-B Natriuret Pep (<450) pg/mL Total Protein 6.8 (6.3-8.2) g/dL Albumin 4.0 (3.5-5.0) g/dL Globulin 2.8 (1.7-4.1) g/dL Albumin/Globulin Ratio 1.4 (1.0-2.8) Lipase 65 (23-300) U/L TSH (0.47-4.68) uIU/mL SARS-CoV-2 (PCR) (Negative) 10/01/21 10/01/21 10/01/21 Range/Units 07:23 07:23 07:23 WBC (4.5-11.0) X10^3/uL RBC (4.5-5.9) X10^6/uL Hgb (13.5-17.5) g/dL Hct (41-53) % MCV (80-100) fL MCH (26-34) PG MCHC (30-36) % RDW (11.6-14.8) % Plt Count (150-400) X10^3/uL Neut % (Auto) (50-75) % Lymph % (Auto) (25-40) % [place] % (Auto) (3-14) % Eos % (Auto) (2-4) % Baso % (Auto) (0-2) % Neut # (Auto) (7041-6284) /uL Lymph # (Auto) (0874-2907) /uL [place] # (Auto) (0-900) /uL Eos # (Auto) (0-450) /uL Baso # (Auto) (0-100) /uL PT (10.1-12.7) SECONDS INR (0.9-1.3) APTT (26.4-36.2) SECONDS D-Dimer 218 (<230) ng/mL Sodium (137-145) mmol/L Potassium (3.4-5.1) mmol/L Chloride (98-107) mmol/L Carbon Dioxide (22-32) mmol/L BUN (9-20) mg/dL Creatinine (0.66-1.25) mg/dL Estimated GFR (>60) mL/min BUN/Creatinine Ratio (6-22) Glucose (80-110) mg/dL Calcium (8.4-10.2) mg/dL Total Bilirubin (0.2-1.3) mg/dL AST (17-59) IU/L ALT (<50) IU/L Alkaline Phosphatase (38-126) U/L Total Creatine Kinase (55-170) U/L CK-MB (CK-2) CK-MB (CK-2) Rel Index Troponin I (0.01-0.034) ng/mL NT-Pro-B Natriuret Pep 1210 H (<450) pg/mL Total Protein (6.3-8.2) g/dL Albumin (3.5-5.0) g/dL Globulin (1.7-4.1) g/dL Albumin/Globulin Ratio (1.0-2.8) Lipase (23-300) U/L TSH 1.44 (0.47-4.68) uIU/mL SARS-CoV-2 (PCR) (Negative) 10/01/21 Range/Units 07:26 WBC (4.5-11.0) X10^3/uL RBC (4.5-5.9) X10^6/uL Hgb (13.5-17.5) g/dL Hct (41-53) % MCV (80-100) fL MCH (26-34) PG MCHC (30-36) % RDW (11.6-14.8) % Plt Count (150-400) X10^3/uL Neut % (Auto) (50-75) % Lymph % (Auto) (25-40) % [place] % (Auto) (3-14) % Eos % (Auto) (2-4) % Baso % (Auto) (0-2) % Neut # (Auto) (7383-4741) /uL Lymph # (Auto) (2419-3056) /uL [place] # (Auto) (0-900) /uL Eos # (Auto) (0-450) /uL Baso # (Auto) (0-100) /uL PT (10.1-12.7) SECONDS INR (0.9-1.3) APTT (26.4-36.2) SECONDS D-Dimer (<230) ng/mL Sodium (137-145) mmol/L Potassium (3.4-5.1) mmol/L Chloride (98-107) mmol/L Carbon Dioxide (22-32) mmol/L BUN (9-20) mg/dL Creatinine (0.66-1.25) mg/dL Estimated GFR (>60) mL/min BUN/Creatinine Ratio (6-22) Glucose (80-110) mg/dL Calcium (8.4-10.2) mg/dL Total Bilirubin (0.2-1.3) mg/dL AST (17-59) IU/L ALT (<50) IU/L Alkaline Phosphatase (38-126) U/L Total Creatine Kinase (55-170) U/L CK-MB (CK-2) CK-MB (CK-2) Rel Index Troponin I (0.01-0.034) ng/mL NT-Pro-B Natriuret Pep (<450) pg/mL Total Protein (6.3-8.2) g/dL Albumin (3.5-5.0) g/dL Globulin (1.7-4.1) g/dL Albumin/Globulin Ratio (1.0-2.8) Lipase (23-300) U/L TSH (0.47-4.68) uIU/mL SARS-CoV-2 (PCR) Negative (Negative) Imaging Data Chest x-ray: Radiologist's Impresson: XRay Report Signed Patient: Hamlet Meade MR#: [id number] : 1945 Acct:[id number] Age/Sex: 76 / M Date of Service: 10/01/21 Loc: ED Accession Number: [id number] ?? Procedure: XR chest 1V Ordering Provider: Apple Mesa D.O. PROCEDURE:? XR CHEST 1V ? INDICATIONS:? chest pain ? TECHNIQUE:? One view of the chest was acquired.? ? COMPARISON:? [facility], CR, XR CHEST 2V, 12/22/2017, 10:56. ? FINDINGS:? ? Surgical changes and devices:? None.? ? Lungs and pleura:? Lungs are clear.? No pleural effusions or pneumothorax.? ? Mediastinum:? Mildly tortuous thoracic aorta is seen.? Heart size is normal.? ? Bones and chest wall:? No suspicious bony lesions.? Overlying soft tissues appear unremarkable.? ? IMPRESSION:? No acute cardiopulmonary pathology. ? ? Dictated by: Som Locke M.D. on 10/01/2021 at 7:53? ECG Data Interpretation: Atrial fibrillation rate 98 new from previous EKG from 2014 MDM Narrative Medical decision making narrative: Patient is completely asymptomatic in atrial fibrillation rate controlled. [employer] watch does state he went into AFib at 6:20 a.m. in the morning however difficult to confirm that he was actually in sinus rhythm yesterday. Heart rate is quite variable on phone may be due to PVCs versus exercise versus other. 0900 Dr. Noonan, Cardiology has been updated patient's symptoms and test results states if cannot confirm sinus rhythm yesterday do not cardiovert and anticoagulation Patient admits to drinking alcohol every day. He said last night he only had 3 glasses of wine. He usually drinks a whole bottle. Discussion of risk of bleeding on Eliquis he has been elevated has blood work. At this time patient agrees that he will discontinue aspirin until he talks to his striper spray gun. HAS-BLED Score for Major Bleeding Risk from [email or web address] on 10/01/2021 All calculations should be rechecked by clinician prior to use RESULT SUMMARY: 3 points Risk was 5.8% in one validation study (Jaycee 2011) and 3.72 bleeds per 100 patient-years in another validation study (Pisters 2010). Alternatives to anticoagulation should be considered: Patient is at high risk for major bleeding. INPUTS: Hypertension ?> 1 = Yes Renal disease ?> 0 = No Liver disease ?> 0 = No Stroke history ?> 0 = No Prior major bleeding or predisposition to bleeding ?> 0 = No Labile INR ?> 0 = No Age >65 ?> 1 = Yes Medication usage predisposing to bleeding ?> 0 = No Alcohol use ?> 1 = Yes Discharge Plan Departure Patient Disposition: Home Clinical Impression: Atrial fibrillation, new onset Instructions: DI for Atrial Fibrillation Activity Restrictions/Additional Instructions: *You have been diagnosed with new onset atrial fibrillation *What to do: At this time please continue to monitor your heart rate. If it is above 120 refill chest pain or palpitations or shortness of breath or any symptoms and return to the emergency department. We discussed anticoagulation with medications such as Eliquis however you are moderate to high risk for a bleeding event. At this time continue aspirin please discuss this again with her striper spray gun *Continue to take medications as directed Aspirin 81 mg once a day *Follow up with your primary care provider in 2-3 days or call [phone] *Return to ER if you should have chest pain palpitation shortness of breath dizziness lightheadedness [or] any new, worsening or concerning symptoms Prescriptions: No Action alprazolam [Xanax] 0.5 MG tablet 0.5 mg PO TIDP Qty: 30 0RF omeprazole 20 MG capsule,delayed release(DR/EC) 20 mg PO BID Qty: 180 0RF Referrals: Marie Smith MD [Primary Care Provider] - Laxmi Parra MD [Non-Staff] - Visit Report Forms: Patient Portal/API
[2021-10-01] MEDS: METOPROLOL TARTRATE 5 MG/5 ML INJ IV (07:26)
[2021-10-01 07:34] LABS: Add Manual Diff / Slide Review NO; Basophils Absolute Auto 0 /uL (0-100); Basophils Percent Auto 0.6 % (0-2); Eosinophils Absolute Auto 300 /uL (0-450); Eosinophils Percent Auto 3.7 % (2-4); Hematocrit 48.6 % (41-53); Hemoglobin 16.4 g/dL (13.5-17.5); Lymphocytes Absolute Auto 1900 /uL (1100-4500); Lymphocytes Percent Auto 24.9 % (25-40); Mean Corpuscular HGB Conc 33.7 % (30-36); Mean Corpuscular Hemoglobin 32.5 PG (26-34); Mean Corpuscular Volume 96.6 fL (80-100); Monocytes Absolute Auto 1000 /uL (0-900); Neutrophils Absolute Auto 4400 /uL (1500-7000); Neutrophils Percent Auto 57.8 % (50-75); Platelet Count 227 X10^3/uL (150-400); Red Blood Cell Count 5.03 X10^6/uL (4.5-5.9); Red Cell Distribution Width 14.4 % (11.6-14.8); White Blood Cell Count 7.5 X10^3/uL (4.5-11.0)
[2021-10-01 07:44] LABS: D Dimer 218 ng/mL (<230)
[2021-10-01 07:46] LABS: Alanine Aminotransferase 19 IU/L (<50); Albumin Globulin Ratio 1.4 (1.0-2.8); Alkaline Phosphatase 51 U/L (38-126); Aspartate Aminotransferase 27 IU/L (17-59); BUN Creatinine Ratio 15.3 (6-22); Bilirubin Total 0.9 mg/dL (0.2-1.3); Blood Urea Nitrogen 17 mg/dL (9-20); Calcium 8.7 mg/dL (8.4-10.2); Carbon Dioxide 26 mmol/L (22-32); Chloride 106 mmol/L (98-107); Creatine Kinase 95 U/L (55-170); Estimated Glomerular Filt Rate > 60 mL/min (>60); Globulin 2.8 g/dL (1.7-4.1); Glucose 120 mg/dL (80-110); HEMOLYSIS 27 (0-50); Lipase 65 U/L (23-300); Potassium 3.9 mmol/L (3.4-5.1); Sodium 139 mmol/L (137-145); Total Protein 6.8 g/dL (6.3-8.2)
[2021-10-01 07:49] LABS: INR 1.1 (0.9-1.3); Prothrombin Time 11.8 SECONDS (10.1-12.7)
[2021-10-01 07:50] LABS: COVID19 -Nasal RAPID Negative (Negative)
[2021-10-01 07:51] LABS: PTT Partial Thromboplastin Tim 39 SECONDS (26.4-36.2)
[2021-10-01 07:55] LABS: NT-proBNP (BNP-Adult 18+) 1210 pg/mL (<450)
[2021-10-01 07:57] LABS: Troponin I 0.012 ng/mL (0.01-0.034)
[2021-10-01 08:21] LABS: Thyroid Stimulating Hormone 1.44 uIU/mL (0.47-4.68)
== END 2021-10-01 09:46 | disposition home or self-care (01) ==
PROVIDERS: Emergency Provider Emergency Medicine; PCP Family Medicine
DX: I48.91 Unspecified atrial fibrillation (principal); R07.9 Chest pain, unspecified; Z20.822 Contact with and (suspected) exposure to COVID-19; Z79.01 Long term (current) use of anticoagulants
CPT/HCPCS: 36415; 71045; 80053; 82550; 83690; 83880; 84443; 84484; 85025; 85379; 85610; 85730; 87635; 93005; 93010; 96374; 99284; C9803

== ENCOUNTER → 2021-12-17 06:36 | Outpatient (CLI) | payer MEDICARE, OTHER, SELFPAY ==
[2021-12-17 07:53] LABS: BUN Creatinine Ratio 13.7 (6-22); Blood Urea Nitrogen 16 mg/dL (9-20); Calcium 8.8 mg/dL (8.4-10.2); Carbon Dioxide 28 mmol/L (22-32); Chloride 100 mmol/L (98-107); Estimated Glomerular Filt Rate > 60 mL/min (>60); Glucose 111 mg/dL (80-110); HEMOLYSIS < 15 (0-50); Potassium 3.8 mmol/L (3.4-5.1); Sodium 138 mmol/L (137-145)
== END ==
PROVIDERS: PCP Family Medicine; Referring Provider Internal Medicine; Visit Provider Internal Medicine
DX: I48.0 Paroxysmal atrial fibrillation (principal)
CPT/HCPCS: 36415; 80048

== ENCOUNTER → 2022-01-08 15:27 | Outpatient (CLI) | payer MEDICARE, OTHER, SELFPAY ==
[2022-01-08 16:05] LABS: Appearance Urine UA CLEAR; Bilirubin Urine UA NEGATIVE (NEGATIVE); Color Urine UA YELLOW; Glucose Urine UA NEGATIVE (Negative); Ketones Urine UA NEGATIVE (NEGATIVE); Leukocyte Esterase Urine UA NEGATIVE (NEGATIVE); Nitrite Urine UA NEGATIVE (Negative); Occult Blood Urine UA TRACE-LYSED (Negative); Protein Urine UA NEGATIVE (Negative); Specific Gravity Urine UA <=1.005 (1.000-1.035); Urobilinogen Urine UA 0.2 E.U./dL (0.2); pH Urine UA 6.5 (4.5-8.0)
[2022-01-08 16:22] LABS: Amorphous Sediment Urine 1+; Bacteria Urine None Seen; Culture Indicated Urine Cult Not Indicated; RBC Urine None Seen (0-5/HPF); WBC Urine None Seen (0-5/HPF)
== END ==
PROVIDERS: PCP Family Medicine; Referring Provider Family Medicine; Visit Provider Family Medicine
DX: R35.0 Frequency of micturition (principal)
CPT/HCPCS: 81001

== ENCOUNTER → 2022-03-06 13:55 | Outpatient (CLI) | payer MEDICARE, OTHER, SELFPAY ==
[2022-03-06 15:11] LABS: Hemoglobin A1C% w Est Avg Glu 6.2 % (4.0-6.0)
[2022-03-06 23:16] LABS: BUN Creatinine Ratio 15.5 (6-22); Blood Urea Nitrogen 17 mg/dL (9-20); Carbon Dioxide 30 mmol/L (22-32); Chloride 101 mmol/L (98-107); Estimated Glomerular Filt Rate > 60 mL/min (>60); Glucose 120 mg/dL (80-110); HEMOLYSIS < 15 (0-50); Potassium 3.8 mmol/L (3.4-5.1); Sodium 139 mmol/L (137-145)
[2022-03-06 23:49] LABS: Prostate Specific Antigen < 0.064 ng/mL (0.10-4.00)
== END ==
PROVIDERS: PCP Family Medicine; Referring Provider Family Medicine; Visit Provider Family Medicine
DX: I10 Essential (primary) hypertension (principal); I48.19 Other persistent atrial fibrillation; I71.40 Abdominal aortic aneurysm, without rupture, unspecified; Z85.46 Personal history of malignant neoplasm of prostate
CPT/HCPCS: 36415; 80048; 83036; 84153

== ENCOUNTER → 2022-03-22 14:46 | Outpatient (CLI) | payer MEDICARE, OTHER, SELFPAY ==
[2022-03-22 16:16] LABS: Influenza A - CEPHEID Flu A NEGATIVE (NEGATIVE); Influenza B - CEPHEID Flu B NEGATIVE (NEGATIVE); Respiratory Syncytial Virus Negative (Negative)
[2022-03-22 16:18] LABS: COVID-19 CEPHEID 4-PLEX PCR Negative (Negative)
== END ==
PROVIDERS: PCP Family Medicine; Visit Provider Family Medicine
DX: R05.1 Acute cough (principal); Z20.828 Contact with and (suspected) exposure to other viral communicable diseases
CPT/HCPCS: 0241U

== ENCOUNTER → 2022-07-08 15:16 | Outpatient (CLI) | payer MEDICARE, OTHER, SELFPAY | PROVIDERS: PCP Family Medicine; Referring Provider Family Medicine; Visit Provider Family Medicine | DX: I49.9 Cardiac arrhythmia, unspecified (principal) | CPT/HCPCS: 93005 ==

== ENCOUNTER → 2022-08-12 16:54 | Outpatient (CLI) | payer MEDICARE, OTHER, SELFPAY ==
[2022-08-12 17:30] LABS: Blood Urea Nitrogen 21 mg/dL (9-20); Calcium 9.2 mg/dL (8.4-10.2); Carbon Dioxide 25 mmol/L (22-32); Chloride 101 mmol/L (98-107); Estimated Glomerular Filt Rate > 60 mL/min (>60); Glucose 91 mg/dL (80-110); HEMOLYSIS 21 (0-50); Potassium 3.9 mmol/L (3.4-5.1); Sodium 135 mmol/L (137-145)
[2022-08-13 23:07] LABS: PSA Ultrasensitive <0.006 ng/mL (0.000-4.000)
== END ==
PROVIDERS: PCP Family Medicine; Referring Provider Family Medicine; Visit Provider Family Medicine
DX: Z85.46 Personal history of malignant neoplasm of prostate (principal); I10 Essential (primary) hypertension; R39.11 Hesitancy of micturition
CPT/HCPCS: 36415; 80048; 84153

== ENCOUNTER → 2022-08-19 08:52 | Outpatient (CLI) | payer MEDICARE, OTHER, SELFPAY ==
--- NOTE | 2022-08-19 08:54 | DI.CT.S_ITS ---
PROCEDURE: CT ABDOMEN PELVIS W CON INDICATIONS: urinary hesitancy. hx of Pro cancer, prostatectomy TECHNIQUE: After the administration of oral and IV contrast, axial sections were acquired from the lung bases to the pubic symphysis. Coronal and sagittal reformats were performed. For radiation dose reduction, the following was used: automated exposure control, adjustment of mA and/or kV according to patient size. COMPARISON: [facility], CT, CT ABDOMEN PELVIS WO CON, 09/21/2020, 11:10. [facility], CT, CT ABDOMEN PELVIS W CON, 08/04/2017, 11:18. FINDINGS: Image quality: Excellent. Lung bases: Unremarkable. Heart: No significant findings. ABDOMEN: Liver: Several scattered subcentimeter circumscribed hypodensities without significant change in size or number over several years, compatible with cysts. Gallbladder: Normal CT appearance. Biliary ducts: Nondilated. Pancreas: Normal. Spleen: Normal. Adrenal Glands: No nodules. Kidneys and Ureters: Symmetric enhancement. No nephrolithiasis or hydronephrosis. No hydroureter. No ureteral calcifications. 5.1 cm unilocular, thin-walled cyst arises from the lateral right pole. Stomach and Bowel: Stomach, small bowel loops, and colon are unremarkable. Peritoneum: No abnormal intraperitoneal fluid. No free air. Ventral Wall: No hernia. Abdominal Nodes: No suspicious adenopathy or mass. 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 Minimal size increase since 2020 (2 mm AP diameter). Mild abdominal aortic atherosclerotic calcification. Common iliac arteries are normal caliber. IVC and portal vein are normal. PELVIS: Pelvic Organs: The prostate gland is surgically absent. Bladder: Urinary bladder is under distended. Anterior wall is diffusely thickened. No bladder calcifications. No significant perivesicular inflammation. Pelvic Nodes: No enlarged lymph nodes. Miscellaneous: Prior bilateral inguinal hernia repair. Bones: No suspicious bone lesions. Multilevel degenerative disc and facet disease, mainly in the lower lumbar spine. IMPRESSION: 1. Status post prostatectomy without visible local recurrence or metastatic disease. 2. The under distended urinary bladder is only partially evaluated, but there are no stones. 3. 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 Dictated by: Leona Barkley M.D. on 08/19/2022 at 12:56 Approved by: Leona Barkley M.D. on 08/19/2022 at 13:07
== END ==
PROVIDERS: PCP Family Medicine; Referring Provider Family Medicine; Visit Provider Family Medicine
DX: R39.11 Hesitancy of micturition (principal); Z85.46 Personal history of malignant neoplasm of prostate; Z98.890 Other specified postprocedural states; I71.40 Abdominal aortic aneurysm, without rupture, unspecified
CPT/HCPCS: 74177; Q9967

== ENCOUNTER → 2022-09-19 09:30 | Outpatient (CLI) | payer MEDICARE, OTHER, SELFPAY ==
[2022-09-19 13:24] LABS: Add Manual Diff / Slide Review NO; Basophils Absolute Auto 0 /uL (0-100); Basophils Percent Auto 0.4 % (0-2); Eosinophils Absolute Auto 200 /uL (0-450); Eosinophils Percent Auto 2.4 % (2-4); Hematocrit 42.9 % (41-53); Hemoglobin 14.6 g/dL (13.5-17.5); Lymphocytes Absolute Auto 1900 /uL (1100-4500); Lymphocytes Percent Auto 24.1 % (25-40); Mean Corpuscular HGB Conc 33.9 % (30-36); Mean Corpuscular Hemoglobin 33.2 PG (26-34); Mean Corpuscular Volume 97.8 fL (80-100); Monocytes Absolute Auto 800 /uL (0-900); Monocytes Percent Auto 10.5 % (3-14); Neutrophils Absolute Auto 5000 /uL (1500-7000); Neutrophils Percent Auto 62.6 % (50-75); Platelet Count 245 X10^3/uL (150-400); Red Blood Cell Count 4.39 X10^6/uL (4.5-5.9); Red Cell Distribution Width 14.1 % (11.6-14.8)
[2022-09-19 13:50] LABS: Alanine Aminotransferase 21 IU/L (<50); Albumin 4.1 g/dL (3.5-5.0); Albumin Globulin Ratio 1.7 (1.0-2.8); Alkaline Phosphatase 58 U/L (38-126); Aspartate Aminotransferase 27 IU/L (17-59); BUN Creatinine Ratio 18.7 (6-22); Bilirubin Total 0.5 mg/dL (0.2-1.3); Blood Urea Nitrogen 20 mg/dL (9-20); Carbon Dioxide 27 mmol/L (22-32); Chloride 100 mmol/L (98-107); Estimated Glomerular Filt Rate > 60 mL/min (>60); Globulin 2.4 g/dL (1.7-4.1); Glucose 118 mg/dL (80-110); HEMOLYSIS < 15 (0-50); Lipase 133 U/L (23-300); Potassium 3.6 mmol/L (3.4-5.1); Sodium 135 mmol/L (137-145); Total Protein 6.5 g/dL (6.3-8.2)
[2022-09-19 15:29] LABS: Appearance Urine UA CLEAR; Bilirubin Urine UA NEGATIVE (NEGATIVE); Color Urine UA YELLOW; Glucose Urine UA NEGATIVE (Negative); Ketones Urine UA NEGATIVE (NEGATIVE); Leukocyte Esterase Urine UA NEGATIVE (NEGATIVE); Nitrite Urine UA NEGATIVE (Negative); Occult Blood Urine UA NEGATIVE (Negative); Protein Urine UA NEGATIVE (Negative); Specific Gravity Urine UA 1.015 (1.000-1.035)
[2022-09-19 20:48] LABS: Bacteria Urine None Seen; Culture Indicated Urine Cult Not Indicated; RBC Urine None Seen (0-5/HPF); Squamous Epithelial Cell Urine 0-1 /HPF (0-5/HPF); WBC Urine None Seen (0-5/HPF)
== END ==
PROVIDERS: PCP Family Medicine; Referring Provider Family Medicine; Visit Provider Family Medicine
DX: I49.9 Cardiac arrhythmia, unspecified (principal); R10.32 Left lower quadrant pain; R39.198 Other difficulties with micturition
CPT/HCPCS: 36415; 80053; 81001; 83690; 85025

== ENCOUNTER → 2022-10-23 11:24 | Outpatient (CLI) | payer MEDICARE, OTHER, SELFPAY ==
[2022-10-24 04:07] LABS: Labcorp Hemoglobin (Hb) A1c 5.8 % (4.8-5.6)
== END ==
PROVIDERS: PCP Family Medicine; Referring Provider Family Medicine; Visit Provider Family Medicine
DX: R73.01 Impaired fasting glucose (principal)
CPT/HCPCS: 36415; 83036

== ENCOUNTER 2022-11-04 07:16 | Day surgery (SDC) | payer MEDICARE, OTHER, SELFPAY ==
[2022-10-30 12:36] VITALS: BMI 31.1
[2022-11-04] MEDS: LACTATED RINGERS 1,000 ML 21 ML IV (07:51)
[2022-11-04 08:04] VITALS: BP 125/65; PULSE 56; RESP 16; O2SAT 97; BMI 31.1
--- NOTE | 2022-11-04 08:52 | PM.PREOP ---
Pre-operative Note COVID-19 COVID-19 status: Not tested Criteria for continued procedure: Delay expected to result in less-positive ultimate med/surg outcome and Non-surgical alternatives not available or appropriate per current SOC Interval Note History & Physical reviewed/Exam performed by Physician: Yes Changes to H&P: No
[2022-11-04] MEDS: CEFAZOLIN 2 GM/100 ML PREMIX 100 ML IV (09:25)
--- NOTE | 2022-11-04 09:39 | SUR.OPER ---
Lithotomy on padded OR bed, head on pillow, arms secured on padded arm boards at <90 degrees abduction. Legs secured in padded yellow fins stirrups.
[2022-11-04] MEDS: TRIAMCINOLONE 40 MG/ML VIAL 80 MG IM (09:43)
[2022-11-04] MEDS: LIDOCAINE 1% 20 ML INJ (09:46)
--- NOTE | 2022-11-04 09:55 | PM.OP.1 ---
Procedure & Clinicians Procedure: Cystoscopy with periurethral injection of steroid and over the wire anastomotic stricture dilation. Same procedure as scheduled: Yes Indications: This 77-year-old male who had undergone radical prostatectomy presented with worsening lower urinary tract symptoms. He had flexible cystoscopy which revealed an anastomotic/bladder neck stricture or contracture. He presents this time for the above procedure to treat this. Surgeon: Jerad Pringle Click Yes if Unassisted: Yes Anesthesia Type: General Operative Notes Findings: Urethral meatus is normal, urethra is normal to the sphincter which is well coapted. Past the sphincter and at the anastomosis is a tight narrowing stricture/contracture. At the end of the procedure this had been dilated to 20 [place] easily accepted the cystoscope and the 20 [place] Nav[place] tip catheter. The patient had received 2 cc of Kenalog 40 around the anastomotic narrowing. Within the bladder the ureteral orifices were normal position with clear efflux. There was minimal to moderate trabeculation the mucosa was normal there were no tumors, stones, fistula or other abnormality. Closure Type: not applicable Specimen(s): none sent Prosthetic devices, grafts, tissues, transplants, or devices: Twenty [place] Navajo tip catheter 10 cc in the balloon Applied: catheter (Navajo tip 2 way 20 cc) Estimated Blood Loss (mL): 0 Blood products transfused: none Procedure in detail: Procedure in detail: After informed consent was obtained, the patient was identified and brought to the operating room where was placed in a supine position on the table. Once on the table anesthesia was induced and maintained. Ensuring an adequate level of anesthesia the patient was transitioned to the lithotomy position where he was prepped, draped and prepared for Transurethral procedure. After ensuring an adequate level of anesthesia, prepping, draping and time-out the cystoscope was passed to the level of the narrowing. Then using the cystoscopic needle the Kenalog was injected at 12, 3, 6 and 9 o'clock position circumferentially around the narrowing. An ultra stiff guidewire was then passed through the stricture and coiled within the bladder. The cook ?S? dilators were then employed from 14-20 [place]. Dilating the narrowing the scope was then passed alongside the wire through the dilation and into the bladder where cystoscopy was performed. With the findings in had the scope was backed out the [place] tip catheter was then passed over the wire and into the bladder with the balloon was filled with 10 cc sterile water. The wire was removed the catheter was left in good position. At this point the procedure having been completed the patient was awakened and transitioned to the postanesthesia care unit for recovery. There were no complications and the patient tolerated the procedure well. Complications: none Post-operative Condition: stable Disposition: PACU Plan for aftercare: Patient to follow up my office in approximately 10-14 days he is to continue the catheter over that time.
[2022-11-04 09:56] VITALS: BP 133/62; PULSE 66; RESP 10; TEMP 36.1; O2SAT 92
[2022-11-04 10:01] VITALS: BP 121/65; PULSE 67; RESP 10; O2SAT 91
[2022-11-04 10:06] VITALS: BP 149/76; PULSE 73; RESP 16; O2SAT 94
[2022-11-04 10:11] VITALS: BP 153/75; PULSE 71; RESP 17; O2SAT 95
[2022-11-04 10:15] VITALS: BP 153/75; PULSE 74; RESP 16; O2SAT 94
== END 2022-11-04 10:45 | disposition home or self-care (01) ==
PROVIDERS: PCP Family Medicine; Referring Provider Urology; Visit Provider Urology
PROC: 0TBC8ZZ Excision of Bladder Neck, Via Natural or Artificial Opening Endoscopic (ICD-10-PCS; CPT 52500; principal; 2022-11-04 09:00)
DX: N32.0 Bladder-neck obstruction (principal)
CPT/HCPCS: 52283; 82962; J0690; J1100; J1885; J2405; J2704; J3010

== ENCOUNTER → 2023-01-31 07:50 | Outpatient (CLI) | payer MEDICARE, OTHER, SELFPAY ==
[2023-01-31 10:35] LABS: Appearance Urine UA CLEAR; Bilirubin Urine UA NEGATIVE (NEGATIVE); Color Urine UA YELLOW; Glucose Urine UA NEGATIVE (Negative); Ketones Urine UA NEGATIVE (NEGATIVE); Leukocyte Esterase Urine UA NEGATIVE (NEGATIVE); Nitrite Urine UA NEGATIVE (Negative); Occult Blood Urine UA NEGATIVE (Negative); Protein Urine UA NEGATIVE (Negative); Specific Gravity Urine UA 1.025 (1.000-1.035); pH Urine UA 5.5 (4.5-8.0)
[2023-01-31 10:41] LABS: Bacteria Urine None Seen; Culture Indicated Urine Cult Not Indicated; RBC Urine None Seen (0-5/HPF); Squamous Epithelial Cell Urine None Seen (0-5/HPF); WBC Urine None Seen (0-5/HPF)
== END ==
PROVIDERS: PCP Family Medicine; Referring Provider Urology; Visit Provider Urology
DX: N32.0 Bladder-neck obstruction (principal); R32 Unspecified urinary incontinence; N39.43 Post-void dribbling; R39.9 Unspecified symptoms and signs involving the genitourinary system
CPT/HCPCS: 81001

== ENCOUNTER → 2023-02-27 13:22 | Outpatient (CLI) | payer MEDICARE, OTHER, SELFPAY ==
--- NOTE | 2023-02-27 13:23 | DI.RAD.S_ITS ---
PROCEDURE: XR LUMBAR SPINE MIN 4V INDICATIONS: low back pain TECHNIQUE: 5 views of the lumbar spine were acquired, including bilateral oblique views. COMPARISON: [facility], , XR LUMBAR SPINE 2-3V, 12/09/2017, 12:52. FINDINGS: Bones: 5 nonrib-bearing vertebrae are present. There is loss of normal lumbar lordosis. Mild leftward curvature of the mid lumbar spine. Multilevel disc space narrowing and endplate osteophyte formation, as well as facet hypertrophy. No vertebral body compression fractures. No suspicious bony lesions. Soft tissues: Overlying bowel gas pattern is normal. No suspicious soft tissue calcifications. Oblique images: No pars defects. IMPRESSION: 1. Multilevel degenerative disc and facet disease. 2. No acute fracture. No osseous lesion. If symptoms and/or clinical suspicion for pathology persist, further assessment with repeat, or advanced imaging (e.g., CT, MRI, or bone scan) may be helpful for further assessment. Dictated by: Cliff Max M.D. on 02/27/2023 at 14:39 Approved by: Cliff Max M.D. on 02/27/2023 at 14:40
== END ==
PROVIDERS: PCP Family Medicine; Referring Provider Anesthesiology; Visit Provider Anesthesiology
DX: M47.26 Other spondylosis with radiculopathy, lumbar region (principal); M51.16 Intervertebral disc disorders with radiculopathy, lumbar region; M54.50 Low back pain, unspecified; G89.29 Other chronic pain
CPT/HCPCS: 72110; 99214

== ENCOUNTER 2023-04-16 14:29 | Outpatient (CLI) | payer MEDICARE, OTHER, SELFPAY ==
[2023-04-16 14:50] VITALS: BP 163/80; PULSE 73; RESP 18; TEMP 36.7; O2SAT 99
--- NOTE | 2023-04-16 15:00 | DI.RAD.S_ITS ---
PROCEDURE: PAIN L INTERLAMINAR/CAUDAL INJ INDICATIONS: SPONDYLOSIS COMPARISON: MR, MR LUMBAR SPINE WO CON, 08/31/2021, 13:30. [facility], CR, XR LUMBAR SPINE MIN 4V, 02/27/2023, 13:45. FINDINGS: Fluoroscopic spot filming was performed to verify placement of spinal needles at the L4-L5 level(s), as labeled on the films. Appropriate location(s) of the needle tip(s) was confirmed by injection of iodinated contrast. IMPRESSION: Fluoroscopy for pain management. Dictated by: Светлана Nelson M.D. on 04/16/2023 at 16:48 Approved by: Светлана Nelson M.D. on 04/16/2023 at 16:49
[2023-04-16 15:10] VITALS: BP 132/77; PULSE 77; RESP 22; O2SAT 100
[2023-04-16] MEDS: DEXAMETHASONE 10 MG/ML VIAL INJ (15:11)
[2023-04-16] MEDS: iopamidoL 15 ML VIAL 3 ML INJ (15:11)
[2023-04-16 15:15] VITALS: BP 132/63; PULSE 67; RESP 16; O2SAT 100
[2023-04-16 15:20] VITALS: BP 131/63; PULSE 68; RESP 16; O2SAT 98
--- NOTE | 2023-04-16 15:21 | P.PCN_ITS ---
Date/Time/Diagnoses Date of procedure: 04/16/23 Time of procedure: 15:00 Procedure Notes Physician: Lalo Britt Total Fluoroscopy time (seconds): 12 Total sedation minutes: 0 Procedure in detail & Post-procedure care: L4-5 Interlaminar Epidural Steroid Injection Indications: [place] is presenting for treatment of lumbar radiculopathy with low back and leg pain. Preoperative diagnosis: Lumbar radiculopathy Postoperative diagnosis: Same Focused Examination: Ax3 Mood and affect are normal Vital Signs: VSS Consent: Following review of allergies and potential side effects/complications, including, but not necessarily limited to, infection, allergic reaction, local tissue breakdown, stroke, temporary or permanent nerve injury, paralysis, and possible , the patient indicated that they understood and agreed to proceed.? An informed consent document was signed by the patient, witnessed by a nurse and placed in the patient's chart.? Additionally, other treatment options including medications and physical therapy were reviewed with the patient. All questions were answered. Site was then marked. Anesthesia: Local Position: Prone Monitoring: NIBP, Pulse oximetry, 3 lead EKG Needle used: 18 G 3.5? Tuohy Contrast: Isovue 300M Injectate: Dexamethasone 10 mg with 1% lidocaine 2 mL Technique: The skin was prepped with chloraprep and then draped in a sterile fashion. Time out was performed as per protocol. Oxygen applied via NC. Skin and subcutaneous structures of the needle entry site was then infiltrated with 3 mL of lidocaine 1%. Under AP, lateral and contralateral oblique fluoroscopic control, the Tuohy needle was guided into the L4-5 epidural space. The space was accessed with loss of resistance technique. Isovue 300M was then injected and the spread was consistent with the epidural space. There was no evidence for intravascular or intrathecal uptake. After negative aspiration, the above- mentioned injectate was then slowly administered and the needle withdrawn. The patient expressed no unusual discomfort or paresthesias during the injection. Band-Aids applied to injection sites. EBL: less than 1 ml Complications: None Post Procedure: Patient was taken to the recovery and monitored. The patient was provided a Pain Log to continue to record the patient's response to the target- specific procedure prior to the patient's follow-up visit with the referring physician. Patient was stable upon discharge. Detailed post procedure instructions were provided. Patient was asked to call in the event of worsening pain, fever, weakness, numbness or bladder or bowel incontinence.
== END 2023-04-16 15:27 | disposition home or self-care (01) ==
PROVIDERS: PCP Family Medicine; Referring Provider Anesthesiology; Visit Provider Anesthesiology
DX: M54.16 Radiculopathy, lumbar region (principal)
CPT/HCPCS: 62323; J1100

== ENCOUNTER → 2023-04-24 09:34 | Outpatient (CLI) | payer MEDICARE, OTHER, SELFPAY | PROVIDERS: PCP Family Medicine; Visit Provider Urology | DX: N32.0 Bladder-neck obstruction (principal); R39.9 Unspecified symptoms and signs involving the genitourinary system; R32 Unspecified urinary incontinence; M62.89 Other specified disorders of muscle; Z85.46 Personal history of malignant neoplasm of prostate | CPT/HCPCS: 51798; 81002; 87077; 87086; 87186; 99214 ==

== ENCOUNTER → 2023-05-13 07:53 | Outpatient (CLI) | payer MEDICARE, OTHER, SELFPAY ==
[2023-05-13 09:04] LABS: Appearance Urine UA CLEAR; Bilirubin Urine UA NEGATIVE (NEGATIVE); Color Urine UA YELLOW; Glucose Urine UA NEGATIVE (Negative); Ketones Urine UA NEGATIVE (NEGATIVE); Leukocyte Esterase Urine UA NEGATIVE (NEGATIVE); Nitrite Urine UA NEGATIVE (Negative); Occult Blood Urine UA NEGATIVE (Negative); Protein Urine UA NEGATIVE (Negative); Specific Gravity Urine UA 1.015 (1.000-1.035); pH Urine UA 5.5 (4.5-8.0)
[2023-05-13 09:14] LABS: Bacteria Urine None Seen; Culture Indicated Urine Cult Not Indicated; RBC Urine None Seen (0-5/HPF); Squamous Epithelial Cell Urine None Seen (0-5/HPF); Urine Volume 10mL (spun); WBC Urine None Seen (0-5/HPF)
== END ==
PROVIDERS: PCP Family Medicine; Referring Provider Urology; Visit Provider Urology
DX: R32 Unspecified urinary incontinence (principal); N39.43 Post-void dribbling; R35.1 Nocturia; N32.0 Bladder-neck obstruction; R39.9 Unspecified symptoms and signs involving the genitourinary system
CPT/HCPCS: 81001

== ENCOUNTER → 2023-06-19 07:40 | Outpatient (CLI) | payer MEDICARE, OTHER, SELFPAY ==
--- NOTE | 2023-06-19 07:42 | DI.US.S_ITS ---
PROCEDURE: US RETRO PERITONEAL LIMITED INDICATIONS: MID ABDOMINAL AORTIC ANERUYSM TECHNIQUE: Real-time scanning was performed of the retroperitoneal organs, with image documentation. COMPARISON: Outside Facility, , AORTA COMPLETE, 07/15/2022, 10:04. Located Within [facility], , RETRO PERITONEAL LIMITED, 12/15/2018, 13:24. FINDINGS: Proximal aorta measures a diameter of 3.6 cm, previously 2.8 cm. Mid aorta measures a diameter of 5 x 4.9 cm, similar to prior, but increased compared to more remote imaging in 2019 and previous. Distal aorta measures 2.7 cm previously 2.4 cm. Right common iliac artery measures 1.5 cm previously 1.3 cm and left common iliac artery measures 1.6 cm previously 1.4 cm. These are slightly increased from prior imaging. IMPRESSION: Abdominal aortic aneurysm as described above up to 5 cm, similar compared to most recent imaging from 2022, but increased compared to more remote imaging. Dictated by: Ricky Rodgers M.D. on 06/23/2023 at 16:50 Approved by: Ricky Rodgers M.D. on 06/23/2023 at 16:54
== END ==
PROVIDERS: PCP Family Medicine; Referring Provider Surgery Vascular Surgery; Visit Provider Surgery Vascular Surgery
DX: I71.43 Infrarenal abdominal aortic aneurysm, without rupture (principal)
CPT/HCPCS: 76775

== ENCOUNTER 2023-09-03 08:29 | Outpatient (CLI) | payer MEDICARE, OTHER, SELFPAY ==
[2023-09-03 08:35] VITALS: BP 143/66; PULSE 64; RESP 18; TEMP 36.3; O2SAT 98
--- NOTE | 2023-09-03 09:00 | DI.RAD.S_ITS ---
PROCEDURE: PAIN L INTERLAMINAR/CAUDAL INJ INDICATIONS: LUMBAR RADICULOPATHY COMPARISON: [facility], XA, PAIN L INTERLAMINAR/CAUDAL INJ, 04/16/2023, 16:10. FINDINGS: Fluoroscopic spot filming was performed to verify placement of spinal needles at the L3-L4 level(s), as labeled on the films. Appropriate location(s) of the needle tip(s) was confirmed by injection of iodinated contrast. IMPRESSION: Intraoperative guidance provided. Dictated by: Frank Julio M.D. on 09/03/2023 at 10:14 Approved by: Frank Julio M.D. on 09/03/2023 at 10:15
[2023-09-03 09:05] VITALS: BP 139/65; PULSE 51; RESP 14; O2SAT 100
[2023-09-03 09:10] VITALS: BP 123/64; PULSE 52; RESP 16; O2SAT 99
[2023-09-03] MEDS: iopamidoL 15 ML VIAL 3 ML INJ (09:11)
[2023-09-03] MEDS: DEXAMETHASONE 10 MG/ML VIAL INJ (09:11)
[2023-09-03 09:15] VITALS: BP 134/63; PULSE 54; RESP 18; O2SAT 98
--- NOTE | 2023-09-03 10:57 | P.PCN_ITS ---
Date/Time/Diagnoses Date of procedure: 09/03/23 Time of procedure: 09:00 Procedure Notes Physician: Lalo Britt Total Fluoroscopy time (seconds): 12 Total sedation minutes: 0 Procedure in detail & Post-procedure care: L3-4 Interlaminar Epidural Steroid Injection Indications: [place] is presenting for treatment of lumbar radiculopathy with low back and leg pain. Preoperative diagnosis: Lumbar radiculopathy Postoperative diagnosis: Same Focused Examination: Ax3 Mood and affect are normal Vital Signs: VSS Patient held Eliquis 3 days prior to injection. He was instructed to restart this medication 24 hours after injection. Consent: Following review of allergies and potential side effects/complications, including, but not necessarily limited to, infection, allergic reaction, local tissue breakdown, stroke, temporary or permanent nerve injury, paralysis, and possible , the patient indicated that they understood and agreed to proceed.? An informed consent document was signed by the patient, witnessed by a nurse and placed in the patient's chart.? Additionally, other treatment options including medications and physical therapy were reviewed with the patient. All questions were answered. Site was then marked. Anesthesia: Local Position: Prone Monitoring: NIBP, Pulse oximetry, 3 lead EKG Needle used: 18 G 3.5? Tuohy Contrast: Isovue 300M Injectate: Dexamethasone 10 mg with 1% lidocaine 2 mL Technique: The skin was prepped with chloraprep and then draped in a sterile fashion. Time out was performed as per protocol. Oxygen applied via NC. Skin and subcutaneous structures of the needle entry site was then infiltrated with 3 mL of lidocaine 1%. Under AP, lateral and contralateral oblique fluoroscopic control, the Tuohy needle was guided into the L3-4 epidural space. The space was accessed with loss of resistance technique. Isovue 300M was then injected and the spread was consistent with the epidural space. There was no evidence for intravascular or intrathecal uptake. After negative aspiration, the above- mentioned injectate was then slowly administered and the needle withdrawn. The patient expressed no unusual discomfort or paresthesias during the injection. Band-Aids applied to injection sites. EBL: less than 1 ml Complications: None Post Procedure: Patient was taken to the recovery and monitored. The patient was provided a Pain Log to continue to record the patient's response to the target- specific procedure prior to the patient's follow-up visit with the referring physician. Patient was stable upon discharge. Detailed post procedure instructions were provided. Patient was asked to call in the event of worsening pain, fever, weakness, numbness or bladder or bowel incontinence.
== END 2023-09-03 09:23 | disposition home or self-care (01) ==
LOC: RAD 08:29
PROVIDERS: PCP Family Medicine; Referring Provider Anesthesiology; Visit Provider Anesthesiology
DX: M54.16 Radiculopathy, lumbar region (principal)
CPT/HCPCS: 62323; J1100

== ENCOUNTER → 2023-10-15 06:44 | Outpatient (CLI) | payer MEDICARE, OTHER, SELFPAY ==
[2023-10-15 08:25] LABS: Add Manual Diff / Slide Review NO; Basophils Absolute Auto 0 /uL (0-100); Basophils Percent Auto 0.5 % (0-2); Eosinophils Absolute Auto 300 /uL (0-450); Eosinophils Percent Auto 4.5 % (2-4); Hematocrit 42.7 % (41-53); Hemoglobin 14.4 g/dL (13.5-17.5); Lymphocytes Absolute Auto 2200 /uL (1100-4500); Mean Corpuscular HGB Conc 33.7 % (30-36); Monocytes Absolute Auto 1000 /uL (0-900); Monocytes Percent Auto 13.6 % (3-14); Neutrophils Absolute Auto 3600 /uL (1500-7000); Neutrophils Percent Auto 50.4 % (50-75); Platelet Count 216 X10^3/uL (150-400); Red Blood Cell Count 4.36 X10^6/uL (4.5-5.9)
[2023-10-15 08:50] LABS: Alanine Aminotransferase 18 IU/L (<50); Albumin 3.8 g/dL (3.5-5.0); Albumin Globulin Ratio 1.5 (1.0-2.8); Alkaline Phosphatase 52 U/L (38-126); Aspartate Aminotransferase 27 IU/L (17-59); BUN Creatinine Ratio 16.7 (6-22); Blood Urea Nitrogen 18 mg/dL (9-20); Calcium 8.8 mg/dL (8.4-10.2); Carbon Dioxide 27 mmol/L (22-32); Chloride 106 mmol/L (98-107); Cholesterol 156 mg/dL (140-199); Estimated Glomerular Filt Rate > 60 mL/min (>60); Globulin 2.5 g/dL (1.7-4.1); Glucose 101 mg/dL (80-110); HDL Cholesterol 51 mg/dL (40-60); HEMOLYSIS < 15 (0-50); LDL Cholesterol Calculated 82 mg/dL (<100); Potassium 3.7 mmol/L (3.4-5.1); Sodium 139 mmol/L (137-145); Total Protein 6.3 g/dL (6.3-8.2); Triglycerides 114 mg/dL (35-150)
[2023-10-15 09:08] LABS: TSH w/ Reflex to FT4 1.54 uIU/mL (0.47-4.68)
[2023-10-15 09:26] LABS: Prostate Specific Antigen < 0.064 ng/mL (0.10-4.00)
== END ==
PROVIDERS: PCP Family Medicine; Referring Provider Urology; Visit Provider Urology
DX: Z85.46 Personal history of malignant neoplasm of prostate (principal); E78.49 Other hyperlipidemia; R73.01 Impaired fasting glucose; K21.9 Gastro-esophageal reflux disease without esophagitis; I10 Essential (primary) hypertension
CPT/HCPCS: 36415; 80053; 80061; 84153; 84443; 85025

== ENCOUNTER 2023-12-21 22:09 | Emergency (ER) | payer MEDICARE, OTHER, SELFPAY ==
[2023-12-21 22:18] VITALS: BP 150/65; PULSE 37; RESP 16; TEMP 36.8; O2SAT 95; BMI 29.9
--- NOTE | 2023-12-21 22:24 | EKG_ITS ---
[address] [address] Test Date: 2023-12-21 Pat Name: Hamlet Meade Department: [facility] Room: Gender: Male Rehabilitation Medicine Physician: MELISA FELIPE : 1945 Requested By: Order Number: [id number] Reading MD: Chai Meneses MD Measurements Intervals [place] Rate: 68 P: 59 WV: 202 QRS: -25 QRSD: 114 T: -3 QT: 430 QTc: 457 Interpretive Statements Sinus rhythm with frequent premature ventricular complexes in a pattern of bigeminy Nonspecific ST abnormality Electronically Signed On 12-22-2023 7:33:55 PDT by Chai Meneses MD
--- NOTE | 2023-12-21 22:39 | ED.DENTAL ---
HPI - Dental/Oral General Chief complaint: Dental/Oral Stated complaint: swollen,painful gums Time Seen by Provider: 12/21/23 22:21 Source: patient Mode of arrival: Family Vehicle History of Present Illness HPI Narrative: 78-year-old male with left lower dental pain, not currently taking antibiotics for this problem, no new his dentist, he is scheduled to see his dentist tomorrow, increased pain today. No neck swelling. No difficulties with swallowing. No injury or trauma blunt trauma recalled. No fevers or chills. No swelling lymph nodes or other masses in the neck or face areas. Related Data Home Medications Medication Instructions Recorded Confirmed apixaban 5 mg tablet (Eliquis) 5 mg PO BID 03/05/22 08/14/23 Previous Rx's Medication Instructions Recorded omeprazole 20 mg capsule,delayed 20 mg PO DAILY #90 caps 07/03/22 release alprazolam 0.5 mg tablet (Xanax) 0.5 mg PO BEDTIME PRN sleep #90 08/29/23 tabs losartan 100 mg tablet 100 mg PO DAILY #90 tabs 10/14/23 amlodipine 5 mg tablet See Rx Instructions .Route 10/16/23 .COMPLEX #90 tabs atorvastatin 40 mg tablet See Rx Instructions .Route 10/16/23 .COMPLEX #90 tabs hydrochlorothiazide 25 mg tablet See Rx Instructions .Route 11/18/23 .COMPLEX #90 tabs gabapentin 100 mg capsule 100 - 200 mg (1 - 2 x 100 mg) PO 12/09/23 ONCE PM PRN for neuropathic pain #60 caps amoxicillin 875 mg tablet 875 mg PO BID dental infection 7 12/21/23 days #14 tabs Allergies Allergy/AdvReac Type Severity Reaction Status Date / Time No Known Allergies Allergy Verified 08/14/23 09:28 Review of Systems Review of Systems Narrative: see HPI Patient History Medical History (Updated 12/21/23 @ 22:40 by Paul Zhao MD) Cyst of lumbar facet joint Lumbar spondylosis Low back pain Lumbar radiculopathy Weakness of pelvic floor in male Acquired contracture of bladder neck Post-void dribbling Nocturia Lower urinary tract symptoms Insomnia History of prostate cancer Hyperlipidemia Atrial fibrillation, persistent Abdominal aortic aneurysm Benign essential HTN Surgical History Hx of vasectomy Hx of circumcision Hx of hernia repair Hx of total adrenalectomy Anesthesia History of prostatectomy (~2004) Status post endoscopy Family History Father Heart attack Mother Old age Social History marital status: number of children: 3 occupational status: employed Smoking Status: Never smoker alcohol intake: current caffeine: Yes Type(s) of exercise: other frequency: daily duration: > 90 minutes/day Smoking Status: Never smoker Substance Use Type: does not use Exam Narrative Exam Narrative: GENERAL: Well-developed patient, in mild distress. HEAD: Atraumatic. Normocephalic. EYES: Pupils equal round and reactive. Extraocular motions intact. No scleral icterus. No injection or drainage. ENT: Nose without bleeding, purulent drainage. Throat without erythema, tonsillar hypertrophy or exudate. Airway patent. Dental caries throughout, tooth decay remnant left posterior molar region, no significant gingival swelling, no significant buccal swelling. No palpable submandibular lymph nodes. No asymmetry external neck, swallowing well, no drool or trismus. NECK: Trachea midline. Non tender CARDIOVASCULAR: Regular rate and rhythm without murmurs, gallops, or rubs. RESPIRATORY: Clear to auscultation. Breath sounds equal bilaterally. No wheezes, rales, or rhonchi. GASTROINTESTINAL: Abdomen soft, non-tender, nondistended. EXTREMITIES: No edema or joint tenderness. BACK: Nontender without deformity or crepitance. No flank tenderness. NEURO: AOx3. Motor functions grossly nonfocal SKIN: No rash or erythema of visible areas Initial Vital Signs Initial Vital Signs: Vital Signs Temperature 98.3 F 12/21/23 22:18 Pulse Rate 37 L 12/21/23 22:18 Respiratory Rate 16 12/21/23 22:18 Blood Pressure 150/65 H 12/21/23 22:18 Pulse Oximetry 95 12/21/23 22:18 Oxygen Delivery Method Room Air 12/21/23 22:18 Course Orders Ordered: ED Orders 12/21/23 22:24 EKG-12 Lead Stat Discontinued Medications Amoxicillin (Amoxicillin 250 Mg Capsule) 1,000 mg PO NOW ONE Stop: 12/21/23 22:41 Last Admin: 12/21/23 22:45 Dose: 1,000 mg Documented By: Tramadol HCl (Tramadol 50 Mg Prepack) 1 bottle MISC DIRECTED ONE Stop: 12/21/23 22:57 Last Admin: 12/21/23 22:59 Dose: 1 bottle Documented By: Vital Signs Vital signs: Vital Signs - 8 hr 12/21/23 22:18 12/21/23 23:04 Temperature 98.3 F 98.4 F Pulse Rate 37 L 62 Respiratory Rate 16 18 Blood Pressure 150/65 H 140/76 Pulse Oximetry 95 98 Oxygen Delivery Method Room Air Room Air MDM - Dental/Oral MDM Narrative Medical decision making narrative: 78-year-old male with dental caries known to his dentist who scheduled to see tomorrow, left lower molar tooth decay remnant present, the site of current pain, no obvious significant swelling to his ipsilateral cheek or submandibular space, or tongue/gingival oral cavity. We will treat for presumed dental abscess. NKDA. Not currently on antibiotics. First dose amoxicillin now, prescription sent for further amoxicillin course. Follow up tomorrow with his dentist as scheduled to 30 p.m. appointment. Take [id number] pain medications. Oral tramadol dose given, home pack tramadol dose dispensed. Return precautions discussed. Discharged stable condition Discharge Plan Departure Patient Disposition: Home Clinical Impression: Pain due to dental caries Activity Restrictions/Additional Instructions: Left lower dental pain infection, awaiting dental consult tomorrow Friday, we will start antibiotics with amoxicillin, 1st dose now, remainder of course sent prescription electronically to your pharmacy. Take antibiotics as directed. Follow up tomorrow with your dentist as planned. Return earlier to this/nearest emergency department for any change worsening symptoms or any concerns prior Prescriptions: New amoxicillin 875 mg tablet 875 mg PO BID 7 Days Qty: 14 0RF No Action omeprazole 20 mg capsule,delayed release(DR/EC) 20 mg PO DAILY Qty: 90 0RF alprazolam [Xanax] 0.5 mg tablet 0.5 mg PO BEDTIME PRN (Reason: sleep) Qty: 90 0RF losartan 100 mg tablet 100 mg PO DAILY Qty: 90 0RF amlodipine 5 mg tablet See Rx Instructions .ROUTE .COMPLEX Qty: 90 3RF Dose Instruction: TAKE 1 TABLET BY MOUTH DAILY Rx Instructions: TAKE 1 TABLET BY MOUTH DAILY atorvastatin 40 mg tablet See Rx Instructions .ROUTE .COMPLEX Qty: 90 3RF Dose Instruction: TAKE 1 TABLET BY MOUTH AT BEDTIME Rx Instructions: TAKE 1 TABLET BY MOUTH AT BEDTIME hydrochlorothiazide 25 mg tablet See Rx Instructions .ROUTE .COMPLEX Qty: 90 3RF Dose Instruction: TAKE 1 TABLET BY MOUTH DAILY Rx Instructions: TAKE 1 TABLET BY MOUTH DAILY gabapentin 100 mg capsule 100 - 200 mg PO ONCE PM PRN (Reason: for neuropathic pain) Qty: 60 0RF Eliquis 5 mg tablet 5 mg PO BID Referrals: Jayce Woodall DO [Primary Care Provider] - Stand Alone Forms: Patient Portal/API
[2023-12-21] MEDS: AMOXICILLIN 250 MG CAPSULE 1000 MG PO (22:45)
[2023-12-21] MEDS: TRAMADOL 50 MG PREPACK 1 BOTTLE MISC (22:59)
[2023-12-21 23:04] VITALS: BP 140/76; PULSE 62; RESP 18; TEMP 36.9; O2SAT 98
== END 2023-12-21 23:05 | disposition home or self-care (01) ==
PROVIDERS: Emergency Provider Emergency Medicine; PCP Family Medicine
DX: K02.9 Dental caries, unspecified (principal)
CPT/HCPCS: 93005; 99283

== ENCOUNTER → 2024-01-26 16:11 | Outpatient (CLI) | payer MEDICARE, OTHER, SELFPAY ==
--- NOTE | 2024-01-26 16:14 | DI.US.S_ITS ---
PROCEDURE: US RETRO PERITONEAL LIMITED INDICATIONS: AAA WO RUPTURE TECHNIQUE: Real time scanning was performed of the aorta and iliac arteries, with image documentation. COMPARISON: Outside Facility, , AORTA COMPLETE, 07/15/2022, 10:04. FINDINGS: Aorta: Proximal aortic diameter measures 3.6 cm, previously 2.8 cm. Mid-aorta measures 2.4 cm, previously similar cm. Distal aortic diameter is 4.9 cm, previously 4.8 cm. Iliac arteries: Right common iliac artery measures 1.4 cm. Left common iliac artery measures 1.4 cm. These are similar to prior IMPRESSION: Abdominal aortic aneurysm at the largest extent measuring 4.9 cm similar to prior. The proximal aorta however is slightly larger at 3.6 cm, previously 2.8 cm. Consider vascular follow-up. Dictated by: Ricky Rodgers M.D. on 01/27/2024 at 13:34 Approved by: Ricky Rodgers M.D. on 01/27/2024 at 13:35
== END ==
PROVIDERS: PCP Family Medicine; Referring Provider Physician Assistant; Visit Provider Physician Assistant
DX: I71.40 Abdominal aortic aneurysm, without rupture, unspecified (principal)
CPT/HCPCS: 76775

== ENCOUNTER → 2024-04-09 16:06 | Outpatient (CLI) | payer MEDICARE, OTHER, SELFPAY ==
[2024-04-09 17:17] LABS: BUN Creatinine Ratio 18.5 (6-22); Blood Urea Nitrogen 20 mg/dL (9-20); Calcium 9.6 mg/dL (8.4-10.2); Carbon Dioxide 28 mmol/L (22-32); Chloride 103 mmol/L (98-107); Estimated Glomerular Filt Rate > 60 mL/min (>60); Glucose 95 mg/dL (80-110); HEMOLYSIS < 15 (0-50); Potassium 3.5 mmol/L (3.4-5.1); Sodium 137 mmol/L (137-145)
== END ==
PROVIDERS: PCP Family Medicine; Referring Provider Urology; Visit Provider Urology
DX: Z01.818 Encounter for other preprocedural examination (principal)
CPT/HCPCS: 36415; 80048

== ENCOUNTER → 2024-04-12 13:38 | Outpatient (CLI) | payer MEDICARE, OTHER, SELFPAY ==
[2024-04-12 14:37] LABS: Appearance Urine UA CLEAR; Bilirubin Urine UA NEGATIVE (NEGATIVE); Color Urine UA YELLOW; Glucose Urine UA TRACE g/dL (Negative); Ketones Urine UA NEGATIVE (NEGATIVE); Leukocyte Esterase Urine UA NEGATIVE (NEGATIVE); Nitrite Urine UA NEGATIVE (Negative); Occult Blood Urine UA NEGATIVE (Negative); Protein Urine UA NEGATIVE (Negative); Specific Gravity Urine UA 1.025 (1.000-1.035); Urobilinogen Urine UA 0.2 E.U./dL (0.2); pH Urine UA 5.5 (4.5-8.0)
[2024-04-12 14:57] LABS: Bacteria Urine Occasional (0-1); Culture Indicated Urine Cult Not Indicated; RBC Urine 0-1/HPF (0-5/HPF); Squamous Epithelial Cell Urine 0-1 /HPF (0-5/HPF); Urine Volume 10mL (spun); WBC Urine 0-1/HPF (0-5/HPF)
== END ==
PROVIDERS: PCP Family Medicine; Referring Provider Nurse Practitioner; Visit Provider Nurse Practitioner
DX: R39.9 Unspecified symptoms and signs involving the genitourinary system (principal)
CPT/HCPCS: 81001

== ENCOUNTER → 2024-08-09 14:16 | Outpatient (CLI) | payer MEDICARE, OTHER, SELFPAY ==
--- NOTE | 2024-08-09 14:20 | DI.US.S_ITS ---
PROCEDURE: US RETRO PERITONEAL LIMITED INDICATIONS: Aneurysm AAA TECHNIQUE: Real time scanning was performed of the aorta and iliac arteries, with image documentation. COMPARISON: [facility], RETRO PERITONEAL LIMITED, 06/19/2023, 8:11. [facility], RETRO PERITONEAL LIMITED, 01/26/2024, 16:29. FINDINGS: Aorta: Proximal aortic diameter measures 3.2 x 2.5 cm, unchanged. Mid-aorta measures 2.9 x 2.7 cm, previously 2.4 cm. Distal aortic diameter is 5.1 x 4.7 cm, previously 4.9 cm. Iliac arteries: Right common iliac artery measures 1.3 cm. Left common iliac artery measures 1.5 cm. IMPRESSION: Growing infrarenal aortic aneurysm measuring 5.1 cm, previously 4.9 cm. Consider surgery. Otherwise, 3 to six-month follow-up is recommended. Dictated by: Joel Bennett M.D. on 08/09/2024 at 16:01 Approved by: Joel Bennett M.D. on 08/09/2024 at 16:02
== END ==
PROVIDERS: PCP Family Medicine
DX: I71.42 Juxtarenal abdominal aortic aneurysm, without rupture (principal)
CPT/HCPCS: 76775

== ENCOUNTER → 2024-10-08 16:26 | Outpatient (CLI) | payer MEDICARE, OTHER, SELFPAY ==
[2024-10-08 16:52] LABS: Hematocrit 44.5 % (41-53); Hemoglobin 15.2 g/dL (13.5-17.5); Mean Corpuscular HGB Conc 34.1 % (30-36); Mean Corpuscular Hemoglobin 33.2 PG (26-34); Mean Corpuscular Volume 97.2 fL (80-100); Platelet Count 231 X10^3/uL (150-400)
[2024-10-08 17:07] LABS: Alanine Aminotransferase 25 IU/L (<50); Albumin 4.4 g/dL (3.5-5.0); Albumin Globulin Ratio 1.8 (1.0-2.8); Alkaline Phosphatase 57 U/L (38-126); Blood Urea Nitrogen 23 mg/dL (9-20); Calcium 9.5 mg/dL (8.4-10.2); Carbon Dioxide 28 mmol/L (22-32); Chloride 106 mmol/L (98-107); Estimated Glomerular Filt Rate > 60 mL/min (>60); Globulin 2.4 g/dL (1.7-4.1); Glucose 83 mg/dL (70-99); HEMOLYSIS < 15 (0-50); Lipase 93 U/L (23-300); Potassium 3.9 mmol/L (3.4-5.1); Sodium 140 mmol/L (137-145); Total Protein 6.8 g/dL (6.3-8.2)
== END ==
PROVIDERS: PCP Family Medicine; Referring Provider Family Medicine; Visit Provider Family Medicine
DX: R10.9 Unspecified abdominal pain (principal); Z12.5 Encounter for screening for malignant neoplasm of prostate; I48.19 Other persistent atrial fibrillation; I10 Essential (primary) hypertension; I71.40 Abdominal aortic aneurysm, without rupture, unspecified; M54.10 Radiculopathy, site unspecified
CPT/HCPCS: 36415; 80053; 83690; 85027; G0103

== ENCOUNTER → 2024-10-12 11:31 | Outpatient (CLI) | payer MEDICARE, OTHER, SELFPAY ==
--- NOTE | 2024-10-12 11:32 | DI.CT.S_ITS ---
PROCEDURE: CT ABDOMEN PELVIS W CON INDICATIONS: abd pain, lower, mid TECHNIQUE: After the administration of intravenous contrast, axial sections acquired from the lung bases to the pubic symphysis. Coronal and sagittal reformats were performed. For radiation dose reduction, the following was used: automated exposure control, adjustment of mA and/or kV according to patient size. COMPARISON: [facility], CT, CT ABDOMEN PELVIS W CON, 08/19/2022, 11:05. FINDINGS: Image quality: Diagnostic. Lower Chest: No significant findings. ABDOMEN: Liver: No solid mass. Gallbladder: No radiopaque gallstones or wall thickening. Biliary ducts: No biliary dilation. Pancreas: No ductal dilation. Spleen: Size is within normal limits. Adrenal Glands: No adrenal nodules. Kidneys and Ureters: No hydronephrosis. No solid mass. No complex renal cystic lesion which requires follow up. Stomach and Bowel: Normal colonic caliber, without significant wall thickening. Peritoneum: No abnormal intraperitoneal fluid. No free air. Ventral Wall: No significant ventral hernia. Abdominal Nodes: No retroperitoneal or mesenteric adenopathy by size criteria. Vessels: Abdominal aortic aneurysm measuring is 5 x 5 cm in diameter, compared to 4.7 cm in diameter previously. PELVIS: Pelvic Organs: Status post prostatectomy. No definite mass. There is a penile prosthesis, no definite fluid collection seen. Bladder: No bladder wall thickening, accounting for underdistention. Pelvic Nodes: No enlarged lymph nodes. Miscellaneous: No inguinal hernias are seen. Bones: No aggressive osseous abnormality. IMPRESSION: 1. No acute intra-abdominal abnormality seen. 2. Mild enlargement of the abdominal aortic aneurysm measuring 5 cm in diameter at this time. Dictated by: Colton Shi M.D. on 10/12/2024 at 15:00 Approved by: Colton Shi M.D. on 10/12/2024 at 15:06
== END ==
PROVIDERS: PCP Family Medicine; Referring Provider Family Medicine; Visit Provider Family Medicine
DX: I71.40 Abdominal aortic aneurysm, without rupture, unspecified (principal); R10.9 Unspecified abdominal pain
CPT/HCPCS: 74177; Q9967

== ENCOUNTER → 2025-01-05 10:16 | Outpatient (CLI) | payer MEDICARE, OTHER, SELFPAY ==
[2025-01-05 10:31] LABS: Hematocrit 46.5 % (41-53); Hemoglobin 15.7 g/dL (13.5-17.5); Mean Corpuscular HGB Conc 33.7 % (30-36); Mean Corpuscular Hemoglobin 32.9 PG (26-34); Mean Corpuscular Volume 97.9 fL (80-100); Platelet Count 210 X10^3/uL (150-400)
[2025-01-05 10:55] LABS: Alanine Aminotransferase 17 IU/L (<50); Albumin 4.4 g/dL (3.5-5.0); Albumin Globulin Ratio 1.7 (1.0-2.8); Alkaline Phosphatase 54 U/L (38-126); Blood Urea Nitrogen 25 mg/dL (9-20); Calcium 9.4 mg/dL (8.4-10.2); Carbon Dioxide 27 mmol/L (22-32); Chloride 102 mmol/L (98-107); Estimated Glomerular Filt Rate > 60 mL/min (>60); Globulin 2.6 g/dL (1.7-4.1); Glucose 99 mg/dL (70-99); HEMOLYSIS < 15 (0-50); Lipase 117 U/L (23-300); Potassium 4.2 mmol/L (3.4-5.1); Sodium 137 mmol/L (137-145); Total Protein 7.0 g/dL (6.3-8.2)
== END ==
PROVIDERS: PCP Family Medicine; Referring Provider Family Medicine; Visit Provider Family Medicine
DX: R10.9 Unspecified abdominal pain (principal)
CPT/HCPCS: 36415; 80053; 83690; 85027

== ENCOUNTER → 2025-01-06 09:23 | Outpatient (CLI) | payer MEDICARE, OTHER, SELFPAY ==
--- NOTE | 2025-01-06 09:26 | DI.CT.S_ITS ---
PROCEDURE: CT ABDOMEN PELVIS W CON INDICATIONS: Lt sided abd pain. ? diverticulitis TECHNIQUE: After the administration of intravenous contrast, axial sections acquired from the lung bases to the pubic symphysis. Coronal and sagittal reformats were performed. For radiation dose reduction, the following was used: automated exposure control, adjustment of mA and/or kV according to patient size. COMPARISON: [facility], CT, CT ABDOMEN PELVIS W CON, 10/12/2024, 11:41. FINDINGS: Image quality: Diagnostic. Lower Chest: No significant findings. ABDOMEN: Liver: No solid mass. Gallbladder: No radiopaque gallstones or wall thickening. Biliary ducts: No biliary dilation. Pancreas: No ductal dilation. Spleen: Size is within normal limits. Adrenal Glands: No adrenal nodules. Kidneys and Ureters: No hydronephrosis. No solid mass. No complex renal cystic lesion which requires follow up. Stomach and Bowel: Normal colonic caliber, without significant wall thickening. Peritoneum: No abnormal intraperitoneal fluid. No free air. Ventral Wall: No significant ventral hernia. Abdominal Nodes: No retroperitoneal or mesenteric adenopathy by size criteria. Vessels: Stable abdominal aortic aneurysm measuring 5 cm. PELVIS: Pelvic Organs: Unremarkable. Bladder: No bladder wall thickening, accounting for underdistention. Pelvic Nodes: No enlarged lymph nodes. Miscellaneous: No inguinal hernias are seen. Bones: No aggressive osseous abnormality. IMPRESSION: Stable appearance, with no acute intra-abdominal abnormality seen. Dictated by: Colton Shi M.D. on 01/06/2025 at 17:54 Approved by: Colton Shi M.D. on 01/06/2025 at 17:59
== END ==
PROVIDERS: PCP Family Medicine; Referring Provider Family Medicine; Visit Provider Family Medicine
DX: R10.9 Unspecified abdominal pain (principal); I71.40 Abdominal aortic aneurysm, without rupture, unspecified
CPT/HCPCS: 74177; Q9967

== ENCOUNTER → 2025-03-09 13:48 | Outpatient (CLI) | payer MEDICARE, OTHER, SELFPAY ==
--- NOTE | 2025-03-09 13:51 | DI.CT.S_ITS ---
PROCEDURE: CT ANGIO ABDOMEN PELVIS INDICATIONS: Abdominal aortic aneurysm, without rupture, unspec TECHNIQUE: After the administration of intravenous contrast, 2.5 mm thick sections acquired from the diaphragm to the symphysis. 10 mm maximum-intensity projection (MIP) reformats were then acquired. For radiation dose reduction, the following was used: automated exposure control. COMPARISON: [facility], CT, CT ABDOMEN PELVIS W CON, 01/06/2025, 9:51. [facility], CT, CT ANGIO ABDOMEN PELVIS, 01/20/2019, 13:40. FINDINGS: Image Quality: Diagnostic. Abdominal aorta: Infrarenal abdominal aortic aneurysm which in December of 2018 had measured 4.8 cm AP and 4.7 cm transverse. Current dimensions in the same area measure 5.1 x 5.1 cm. This has not changed from the most recent comparison CT December of this year. No perianeurysmal fibrosis or evidence of aneurysm leak is present nor is there evidence of aortic dissection. Mesenteric arteries: Patent without hemodynamically significant stenosis, partially visualized. Renal arteries: Patent without hemodynamically significant stenosis, partially visualized. OTHER: Lower Chest: No significant findings. Liver: No solid mass. Gallbladder: No radiopaque gallstones or wall thickening. Biliary ducts: No biliary dilation. Pancreas: No ductal dilation. Spleen: Size is within normal limits. Adrenal Glands: No adrenal nodules. Kidneys and Ureters: No hydronephrosis. No solid mass. No complex renal cystic lesion which requires follow up. Dominant simple appearing exophytic right lateral 6.2 cm renal cortical cyst. Stomach and Bowel: Normal colonic caliber, without significant wall thickening. Peritoneum: No abnormal intraperitoneal fluid. No free air. Ventral Wall: No hernia. Abdominal Nodes: No retroperitoneal or mesenteric adenopathy by size criteria. Vessels: Aorta and inferior vena cava are normal in size. PELVIS: Pelvic Organs: Unremarkable. Bladder: Unremarkable. Pelvic Nodes: No enlarged lymph nodes. Miscellaneous: No inguinal hernias are seen. Penile implant with right groin region control device and catheter. Bones: No aggressive osseous abnormality. IMPRESSION: 5.1 cm infrarenal abdominal aortic aneurysm without dissection or stenosis associated. No acute disease. This aneurysm has very slowly enlarged over time from 2019. Dictated by: Italo Hernandez M.D. on 03/11/2025 at 14:50 Approved by: Italo Hernandez M.D. on 03/11/2025 at 14:56
[2025-03-09 14:20] LABS: Estimated Glomerular Filt Rate > 60 mL/min (>60)
== END ==
PROVIDERS: PCP Family Medicine; Referring Provider Radiology Vascular & Interventional Radiology; Visit Provider Radiology Vascular & Interventional Radiology
DX: I71.42 Juxtarenal abdominal aortic aneurysm, without rupture (principal); I71.40 Abdominal aortic aneurysm, without rupture, unspecified; N28.1 Cyst of kidney, acquired
CPT/HCPCS: 36415; 74174; 82565; Q9967